=== PATIENT | male | born 1935 | race Caucasian/White ===

== ENCOUNTER 2017-04-03 02:32 | Observation (INO) | payer MEDICARE, OTHER ==
[~2017-04-03] VITALS: Ht 177.8 cm; Wt 84.0 kg
[2017-04-03] VITALS (9 sets, daily range): BP systolic 95–129; BP diastolic 57–71; PULSE 56–91; RESP 16–18; TEMP 97.6–98.4; O2SAT 96–98
[2017-04-03] MEDS ORDERED: SPIR25TA PO (02:57)
[2017-04-03] MEDS ORDERED: ASPI1TAB69 PO (02:57)
[2017-04-03] MEDS ORDERED: WARF-58 PO (02:57)
[2017-04-03] MEDS ORDERED: LIOT25TA3 PO (02:57)
[2017-04-03] MEDS ORDERED: LEVO125T4 PO (02:57)
[2017-04-03] MEDS ORDERED: LISI2.5T3 PO (02:57)
[2017-04-03] MEDS ORDERED: FENO160T PO (02:57)
[2017-04-03] MEDS ORDERED: BUME2TAB PO (02:57)
[2017-04-03] MEDS ORDERED: CARV3.12 PO (02:57)
[2017-04-03] MEDS ORDERED: SODIUM CHLORIDE 0.9% FLUSH 5 ML FLUSH IV FLUSH PRN (03:00)
[2017-04-03 03:18] LABS: AUTOMATED NEUTROPHIL # 9.1 TH/MM3 (1.8-7.7); BASOPHIL % 0.3 % (0.0-2.0); HEMATOCRIT 40.7 % (39.0-51.0); HEMO FLAGS DIFF FINAL; LYMPH % 11.3 % (9.0-44.0); LYMPHOCYTE # 1.2 TH/MM3 (1.0-4.8); MEAN CELL VOLUME 91.7 FL (80.0-100.0); MEAN CORPUSCULAR HEMOGLOBIN 31.3 PG (27.0-34.0); MEAN CORPUSCULAR HGB CONC 34.1 % (32.0-36.0); MONO % 5.2 % (0.0-8.0); NEUT % 83.2 % (16.0-70.0); PLATELET COUNT 177 TH/MM3 (150-450); RED BLOOD COUNT 4.43 MIL/MM3 (4.50-5.90); RED CELL DISTRIBUTION WIDTH 13.7 % (11.6-17.2); WHITE BLOOD COUNT 10.9 TH/MM3 (4.0-11.0)
[2017-04-03 03:28] LABS: APTT (PATIENT) 29.9 SEC (24.3-30.1); INTERNATIONAL NORMALIZED RATIO 2.1 RATIO; PROTHROMBIN TIME - PATIENT 23.9 SEC (9.8-11.6)
--- NOTE | 2017-04-03 03:34 | RADRPT ---
EXAM DATE/TIME: 04/03/2017 03:04 [facility] COMPARISON: No previous studies available for comparison. INDICATIONS : Altered mental status, short of breath, confusion. MEDICAL HISTORY : None. SURGICAL HISTORY : None. ENCOUNTER: Initial ACUITY: 1 day PAIN SCORE: Non-responsive. LOCATION: Bilateral chest FINDINGS: A single view of the chest demonstrates the lungs to be symmetrically aerated without evidence of mas s, infiltrate or effusion. Minimal basilar atelectasis. The cardiomediastinal contours are prominent. Osseous structures are intact. CONCLUSION: 1. Cardiomegaly. Minimal basilar atelectasis. Wilder Burr MD on April 03, 2017 at 3:32 Board Certified Radiologist. This report was verified electronically.
[2017-04-03 03:37] LABS: ALT (GPT) 27 U/L (12-78); ANION GAP 11 MEQ/L (5-15); AST (GOT) 26 U/L (15-37); BICARBONATE 23.9 MEQ/L (21.0-32.0); BLOOD UREA NITROGEN 49 MG/DL (7-18); CHLORIDE 101 MEQ/L (98-107); GLOMERULAR FILTRATION RATE 31 ML/MIN (>89); POTASSIUM 4.5 MEQ/L (3.5-5.1); SODIUM (NA) 136 MEQ/L (136-145)
[2017-04-03 03:41] LABS: ACETAMINOPHEN LESS THAN 2.0 MCG/ML (10.0-30.0); ALKALINE PHOSPHATASE 34 U/L (45-117); CREATINE KINASE 109 U/L (39-308); TOTAL BILIRUBIN ADULT 1.1 MG/DL (0.2-1.0)
--- NOTE | 2017-04-03 03:59 | PD ---
HPI Chief Complaint: Head Injury Time Seen by Provider: 02:52 Travel History International Travel<30 days: No Contact w/Intl Traveler<30days: No Traveled to known affect area: No History of Present Illness HPI Patient's 81 years old. He arrives with jerking movements of various times throughout the course of the day. He's also had various episodes of verbal outbursts. Similar symptoms were observed last week. They have been gradually getting worse. For the last day or so they've become essentially constant. Patient carries no diagnosis of dementia. About 4 hours prior to ER arrival the patient fell from the toilet and hit his head against the wall. At the time of interview the patient cannot answer questions in any detail. PFSH Past Medical History Hypertension: Yes Thyroid Disease: Yes Tetanus Vaccination: < 5 Years Influenza Vaccination: Yes Past Surgical History Cholecystectomy: Yes Social History Alcohol Use: No Tobacco Use: No Substance Use: No Allergies-Medications (Allergen,Severity, Reaction): Coded Allergies: No Known Allergies (Unverified , 04/03/17) Reported Meds & Prescriptions Reported Meds & Active Scripts Active Reported Aspirin 81 Mg Tabdr 81 Mg PO DAILY Fenofibrate 160 Mg Tab 160 Mg PO DAILY Spironolactone 25 Mg Tab 25 Mg PO DAILY Carvedilol 3.125 Mg Tab 3.125 Mg PO BID Liothyronine (Liothyronine Sodium) 25 Mcg Tab 25 Mcg PO DAILY Warfarin 3 Mg Tab 3 Mg PO DAILY Bumetanide 2 Mg Tab 2 Mg PO DAILY Lisinopril 2.5 Mg Tab 2.5 Mg PO DAILY Levothyroxine (Levothyroxine Sodium) 125 Mcg Tab 125 Mcg PO DAILY Review of Systems Except as stated in HPI: all other systems reviewed are Neg Physical Exam Narrative GENERAL: 81 yo M, well-nourished well-developed, he appears agitated SKIN: Warm and dry. HEAD: Atraumatic. Normocephalic. L forehead approx 4cm contusion/erythema. EYES: Pupils equal and round. No scleral icterus. No injection or drainage. ENT: No nasal bleeding or discharge. Mucous membranes pink and moist. NECK: Trachea midline. No JVD. CARDIOVASCULAR: Regular rate and rhythm. RESPIRATORY: No accessory muscle use. Clear to auscultation. Breath sounds equal bilaterally. GASTROINTESTINAL: Abdomen soft, non-tender, nondistended. Hepatic and splenic margins not palpable. MUSCULOSKELETAL: Extremities without clubbing, cyanosis, or edema. No obvious deformities. NEUROLOGICAL: Patient is awake. He shouts at random intervals. At various times he flexes his hips and shoulders. The patient can repeat tiptop, 50-50 however he cannot speak freely. The cranial nerves appear symmetric. Patient moves all extremities normally. He does appear agitated. PSYCHIATRIC: Appropriate mood and affect; insight and judgment normal. Data Data Last Documented VS Vital Signs Date Time Temp Pulse Resp B/P Pulse Ox O2 Delivery O2 Flow Rate FiO2 04/03/17 04:41 68 18 116/58 98 Room Air 04/03/17 02:38 97.6 VS reviewed Orders Electrocardiogram (04/03/17 02:52) Ammonia (04/03/17 02:52) Complete Blood Count With Diff (04/03/17 02:52) Comprehensive Metabolic Panel (04/03/17 02:52) Creatine Kinase (Cpk) (04/03/17 02:52) Prothrombin Time / Inr (Pt) (04/03/17 02:52) Act Partial Throm Time (Ptt) (04/03/17 02:52) Troponin I (04/03/17 02:52) Chest, Single Ap (04/03/17 02:52) Ct Brain W/O Iv Contrast(Rout) (04/03/17 02:52) Blood Glucose (04/03/17 02:52) Ecg Monitoring (04/03/17 02:52) Iv Access Insert/Monitor (04/03/17 02:52) Oximetry (04/03/17 02:52) Sodium Chloride 0.9% Flush (Ns Flush) (04/03/17 03:00) Drug Screen, Random Urine (04/03/17 02:52) Alcohol (Ethanol) (04/03/17 02:52) Salicylates (Aspirin) (04/03/17 02:52) Tylenol (Acetaminophen) (04/03/17 02:52) Admit Order (Ed Use Only) (04/03/17 04:45) Labs Laboratory Tests Test 04/03/17 02:55 White Blood Count 10.9 TH/MM3 Red Blood Count 4.43 MIL/MM3 Hemoglobin 13.9 GM/DL Hematocrit 40.7 % Mean Corpuscular Volume 91.7 FL Mean Corpuscular Hemoglobin 31.3 PG Mean Corpuscular Hemoglobin 34.1 % Concent Red Cell Distribution Width 13.7 % Platelet Count 177 TH/MM3 Mean Platelet Volume 10.2 FL Neutrophils (%) (Auto) 83.2 % Lymphocytes (%) (Auto) 11.3 % Monocytes (%) (Auto) 5.2 % Eosinophils (%) (Auto) 0.0 % Basophils (%) (Auto) 0.3 % Neutrophils # (Auto) 9.1 TH/MM3 Lymphocytes # (Auto) 1.2 TH/MM3 Monocytes # (Auto) 0.6 TH/MM3 Eosinophils # (Auto) 0.0 TH/MM3 Basophils # (Auto) 0.0 TH/MM3 CBC Comment DIFF FINAL Differential Comment Prothrombin Time 23.9 SEC Prothromb Time International 2.1 RATIO Ratio Activated Partial 29.9 SEC Thromboplast Time Sodium Level 136 MEQ/L Potassium Level 4.5 MEQ/L Chloride Level 101 MEQ/L Carbon Dioxide Level 23.9 MEQ/L Anion Gap 11 MEQ/L Blood Urea Nitrogen 49 MG/DL Creatinine 2.04 MG/DL Estimat Glomerular Filtration 31 ML/MIN Rate Random Glucose 144 MG/DL Calcium Level 9.2 MG/DL Total Bilirubin 1.1 MG/DL Aspartate Amino Transf 26 U/L (AST/SGOT) Alanine Aminotransferase 27 U/L (ALT/SGPT) Alkaline Phosphatase 34 U/L Ammonia 20 MCMOL/L Total Creatine Kinase 109 U/L Troponin I LESS THAN 0.02 NG/ML Total Protein 7.2 GM/DL Albumin 4.2 GM/DL Salicylates Level LESS THAN 1.7 MG/DL Acetaminophen Level LESS THAN 2.0 MCG/ML Ethyl Alcohol Level LESS THAN 3 MG/DL MDM Medical Decision Making Medical Screen Exam Complete: Yes Emergency Medical Condition: Yes Differential Diagnosis Altered mental status due to infection, altered mental status due to cognitive decline/dementia, polypharmacy, metabolic abnormality, electrolyte imbalance, intracranial pathology, psychiatric disease Narrative Course CBC & BMP Diagram 04/03/17 02:55 LFTs normal Ammonia 20 Troponin less than 0.02 EKG reveals rate of 70 irregular atrial fibrillation; pt has known hx atrial fibrillation Tylenol salicylates and ethyl alcohol are all at the undetectable level Last [address] 04/03/17 0252 Signed Impressions: Service Date/Time: Monday, April 03, 2017 03:48 - CONCLUSION: 1. No acute intracranial abnormalities. Cavum septum pellucidum. Wilder Burr MD Chest X-Ray 04/03/17 0252 Signed Impressions: Service Date/Time: Monday, April 03, 2017 03:04 - CONCLUSION: 1. Cardiomegaly. Minimal basilar atelectasis. Wilder Burr MD Patient's altered mental status is of unclear etiology at this time. He'll be admitted for further evaluation. d/w Dr Mccrary. Diagnosis Primary Impression: Altered mental status Qualified Code: R41.82 - Altered mental status, unspecified altered mental status type Additional Impression: Agitation Admitting Information Admitting Physician Requests: Observation Narayan Rivas MD April 03, 2017 03:59
--- NOTE | 2017-04-03 04:14 | RADRPT ---
EXAM DATE/TIME: 04/03/2017 03:48 [facility] COMPARISON: No previous studies available for comparison. INDICATIONS : Patient fell and hit head. Altered mental status. RADIATION DOSE: 52.13 CTDIvol (mGy) MEDICAL HISTORY : Hypertension. SURGICAL HISTORY : None. ENCOUNTER: Initial ACUITY: 1 day PAIN SCALE: 0/10 LOCATION: cranial TECHNIQUE: Multiple contiguous axial images were obtained of the head. Using automated exposure control and adj ustment of the mA and/or kV according to patient size, radiation dose was kept as low as reasonably a chievable to obtain optimal diagnostic quality images. FINDINGS: CEREBRUM: The ventricles are normal for age. No evidence of midline shift, mass lesion, hemorrhage or acute in farction. No extra-axial fluid collections are seen. POSTERIOR FOSSA: The cerebellum and brainstem are intact. The 4th ventricle is midline. The cerebellopontine angle i s unremarkable. EXTRACRANIAL: The visualized portion of the orbits is intact. SKULL: The calvaria is intact. No evidence of skull fracture. CONCLUSION: 1. No acute intracranial abnormalities. Cavum septum pellucidum. Wilder Burr MD on April 03, 2017 at 4:11 Board Certified Radiologist. This report was verified electronically.
[2017-04-03] MEDS ORDERED: SODIUM CHLORIDE 0.9% FLUSH 10 ML FLUSH IV FLUSH PRN (04:45)
[2017-04-03] MEDS ORDERED: NALOXONE HCL 0.4 MG/ML AMP IV PRN (04:45)
[2017-04-03 05:45] LABS: AMPHETAMINE, URINE NEG (NEG); BARBITURATES, URINE NEG (NEG); COCAINE, URINE NEG (NEG)
[2017-04-03] MEDS: SODIUM CHLORIDE 0.9% FLUSH 10 ML FLUSH IV FLUSH SCH ×2 (09:27→20:26)
[2017-04-03] MEDS: VALPROATE INJ 500 MG in SODIUM CHLORIDE 0.9% INJ 100 ML IV SCH ×2 (10:30→17:47)
[2017-04-03] MEDS ORDERED: BACL20TA PO (11:03)
[2017-04-03] MEDS ORDERED: LORazepam 2 MG/ML VIAL IV PUSH ONE (11:15)
--- NOTE | 2017-04-03 12:50 | RADRPT ---
EXAM DATE/TIME: 04/03/2017 11:53 [facility] COMPARISON: CT BRAIN W/O CONTRAST, April 03, 2017, 3:48. [facility], CT Brain, April 02, 2017 INDICATIONS : Slurred speech. Uncontrollable body movements. MEDICAL HISTORY : Hypertension. Hypothyroidism. SURGICAL HISTORY : Cholecystectomy. cataract ENCOUNTER: Subsequent ACUITY: 1 day PAIN SCORE: 3/10 LOCATION: cranial TECHNIQUE: Multiplanar, multisequence MRI of the brain was performed without contrast. FINDINGS: CEREBRUM: There is a cavum septa pellucida. Mild cortical atrophy. Ventricular prominence out of proportion to the degree of cortical atrophy. No evidence of midline shift, mass lesion, hemorrhage or acute infar ction. No extraaxial fluid collections are seen. The pituitary gland and suprasellar cistern are no rmal in configuration. WHITE MATTER: No significant signal abnormalities are seen in the white matter. POSTERIOR FOSSA: The cerebellum and brainstem are intact. The 4th ventricle is midline. The cerebellopontine angle is unremarkable. The cerebellar tonsils are normal in position. DIFFUSION IMAGING: No focal areas of restricted diffusion are seen. No evidence of acute infarction. EXTRACRANIAL: The visualized portions of the orbits and paranasal sinuses are unremarkable. CONCLUSION: 1. Cavum septum pellucidum, an anatomic variant. 2. Ventricular prominence out of proportion to degree of cortical atrophy. In the appropriate clinica l setting, findings could be indicative of normal pressure hydrocephalus. Osvaldo Ruby MD on April 03, 2017 at 12:46 Board Certified Radiologist. This report was verified electronically.
--- NOTE | 2017-04-03 13:29 | RADRPT ---
EXAM DATE/TIME: 04/03/2017 12:30 [facility] COMPARISON: No previous studies available for comparison. INDICATIONS : Syncope. MEDICAL HISTORY : Congestive heart failure. Hypertension. A-fib. SURGICAL HISTORY : Cholecystectomy. ENCOUNTER: Initial ACUITY: 1 day PAIN SCORE: Nonresponsive. LOCATION: Bilateral neck PEAK SYSTOLIC VELOCITIES (cm/sec): ICA/CCA RATIO: Right: 1.7 Left: 0.9 ICA: Right: 82.7 Left: 67.7 CCA: Right: 47.9 Left: 72.9 ECA: Right: 68.5 Left: 70.2 VERTEBRAL: Right: 44.4 antegrade Left: 69.3 antegrade Elevated flow velocities and ICA/CCA ratios have been found to correlate with increased degrees of vessel stenosis, calculated as percentage of diameter relative to a normal segment of distal ICA/CCA FINDINGS: RIGHT CAROTID: Moderate plaque is present on the right not felt to be hemodynamically significant. . Minimal intimal hyperplasia is present with scattered calcific plaque. LEFT CAROTID: There is no evidence for a hemodynamically significant carotid stenosis. Minimal inti mal hyperplasia is present with scattered calcific plaque. VERTEBRAL ARTERIES: Flow is antegrade in both vertebral arteries. MISCELLANEOUS: There are no ancillary masses or adenopathy. CONCLUSION: Negative examination for a hemodynamically significant carotid stenosis. Constantino Dial MD FACR Board Certified Radiologist. This report was verified electronically.
--- NOTE | 2017-04-03 14:35 | HHI.HP ---
[facility] [place] [facility] Primary Care Physician No Primary Care Physician Admission Diagnosis AMS, Agitation Diagnoses: Chief Complaint: confusion Travel History International Travel<30 Days: No Contact w/Intl Traveler <30 Da: No Traveled to Known Affected Are: No History of Present Illness Written by CHON Musa acting as scribe for Dr. Brizuela] on 04/03/17 at 15 :17. 81 y/o male with a history of HTN,CHF,afib, brain injury, and Hypothyroid presented to the ED confused, increase jerky movements and verbal outbreaks. Patient was given Ativan prior to assessment. Discussed issues with daughter who is at the bedside. 20 years ago he suffered a brain injury from a fall and over the last year he has worsening jerky movements and verbal outbreaks. For the last month he has has had increase balance problems, and yesterday he was having constant jerky movements, he then took a nap, got up to go to the bathroom, and fell asleep on toilet and fell off the toilet. Recent medication change on Thursday, he was given baclofen by his PCP. Review of Systems ROS Limitations: Altered Mental Status Past Family Social History Past Medical History HTN CHF Hypothyroid AFIB Brain injury 20 years ago Past Surgical History Cholecystomy Appendectomy Reported Medications Reported Meds & Active Scripts Active Reported Baclofen 20 Mg Tab 20 Mg PO TID Aspirin 81 Mg Tabdr 81 Mg PO DAILY Fenofibrate 160 Mg Tab 160 Mg PO DAILY Spironolactone 25 Mg Tab 25 Mg PO DAILY Carvedilol 3.125 Mg Tab 3.125 Mg PO BID Liothyronine (Liothyronine Sodium) 25 Mcg Tab 25 Mcg PO DAILY Warfarin 3 Mg Tab 3 Mg PO DAILY Bumetanide 2 Mg Tab 2 Mg PO DAILY Lisinopril 2.5 Mg Tab 2.5 Mg PO DAILY Levothyroxine (Levothyroxine Sodium) 125 Mcg Tab 125 Mcg PO DAILY Allergies: Coded Allergies: No Known Allergies (Unverified , 04/03/17) Active Ordered Medications Current Medications Medications (Trade) Dose Ordered Sig/Shagufta Route Start Time Stop Time Status Last Admin (NS Flush) 2 ml UNSCH PRN IV FLUSH 04/03/17 04:45 (NS Flush) 2 ml BID IV FLUSH 04/03/17 09:00 04/03/17 09:27 Naloxone HCl 0.4 mg 0.4 mg UNSCH PRN IV 04/03/17 04:45 (Depacon Inj/NS Inj) 105 ml @ 105 mls/hr Q8H IV 04/03/17 10:00 04/03/17 10:30 Family History Family history of Heart disease MOM: CHF, DVTs, HTN Social History Per family, Tobacco use: denies Alcohol use: denies Illicit drug use: denies Physical Exam Vital Signs Vital Signs Date Time Temp Pulse Resp B/P Pulse Ox O2 Delivery O2 Flow Rate FiO2 04/03/17 05:54 70 18 106/57 96 04/03/17 04:41 68 18 116/58 98 Room Air 04/03/17 03:22 66 18 129/65 98 Room Air 04/03/17 02:48 20 98 04/03/17 02:38 97.6 91 16 123/71 98 Room Air Physical Exam GENERAL: This is a well-nourished, well-developed patient, in no apparent distress. SKIN: No rashes, ecchymoses or lesions. Cool and dry. HEAD: Atraumatic. Normocephalic. No temporal or scalp tenderness. EYES: Pupils equal round and reactive. Extraocular motions intact. No scleral icterus. No injection or drainage. ENT: Nose without bleeding, purulent drainage or septal hematoma. Throat without erythema, tonsillar hypertrophy or exudate. Uvula midline. Airway patent. NECK: Trachea midline. No JVD or lymphadenopathy. Supple, nontender, no meningeal signs. CARDIOVASCULAR: Regular rate and rhythm without murmurs, gallops, or rubs. RESPIRATORY: Clear to auscultation. Breath sounds equal bilaterally. No wheezes , rales, or rhonchi. GASTROINTESTINAL: Abdomen soft, non-tender, nondistended. No hepato-splenomegaly , or palpable masses. No guarding. MUSCULOSKELETAL: Extremities without clubbing, cyanosis, or edema. No joint tenderness, effusion, or edema noted. No calf tenderness. Negative Homans sign bilaterally. NEUROLOGICAL: Awake and alert. Cranial nerves II through XII intact. Motor and sensory grossly within normal limits. Five out of 5 muscle strength in all muscle groups. Normal speech. Laboratory Laboratory Tests Test 04/03/17 04/03/17 02:55 05:25 White Blood Count 10.9 Red Blood Count 4.43 Hemoglobin 13.9 Hematocrit 40.7 Mean Corpuscular Volume 91.7 Mean Corpuscular Hemoglobin 31.3 Mean Corpuscular Hemoglobin 34.1 Concent Red Cell Distribution Width 13.7 Platelet Count 177 Mean Platelet Volume 10.2 Neutrophils (%) (Auto) 83.2 Lymphocytes (%) (Auto) 11.3 Monocytes (%) (Auto) 5.2 Eosinophils (%) (Auto) 0.0 Basophils (%) (Auto) 0.3 Neutrophils # (Auto) 9.1 Lymphocytes # (Auto) 1.2 Monocytes # (Auto) 0.6 Eosinophils # (Auto) 0.0 Basophils # (Auto) 0.0 CBC Comment DIFF FINAL Differential Comment Prothrombin Time 23.9 Prothromb Time International 2.1 Ratio Activated Partial 29.9 Thromboplast Time Sodium Level 136 Potassium Level 4.5 Chloride Level 101 Carbon Dioxide Level 23.9 Anion Gap 11 Blood Urea Nitrogen 49 Creatinine 2.04 Estimat Glomerular Filtration 31 Rate Random Glucose 144 Calcium Level 9.2 Total Bilirubin 1.1 Aspartate Amino Transf 26 (AST/SGOT) Alanine Aminotransferase 27 (ALT/SGPT) Alkaline Phosphatase 34 Ammonia 20 Total Creatine Kinase 109 Troponin I LESS THAN 0.02 Total Protein 7.2 Albumin 4.2 Salicylates Level LESS THAN 1.7 Acetaminophen Level LESS THAN 2.0 Ethyl Alcohol Level LESS THAN 3 Urine Opiates Screen NEG Urine Barbiturates Screen NEG Urine Amphetamines Screen NEG Urine Benzodiazepines Screen NEG Urine Cocaine Screen NEG Urine Cannabinoids Screen NEG Result Diagram: 04/03/1725404/03/17254 Imaging Last Impressions Head CT 04/03/17251 Signed Impressions: Service Date/Time: Monday, April 03, 2017 03:48 - CONCLUSION: 1. No acute intracranial abnormalities. Cavum septum pellucidum. Wilder Burr MD Chest X-Ray 04/03/17251 Signed Impressions: Service Date/Time: Monday, April 03, 2017 03:04 - CONCLUSION: 1. Cardiomegaly. Minimal basilar atelectasis. Wilder Burr MD Carotid Artery Ultrasound 5/19/17 0000 Signed Impressions: Service Date/Time: Monday, April 03, 2017 12:30 - CONCLUSION: Negative examination for a hemodynamically significant carotid stenosis. Constantino Dial MD Brain MRI 04/03/17 0000 Signed Impressions: Service Date/Time: Monday, April 03, 2017 11:53 - CONCLUSION: 1. Cavum septum pellucidum, an anatomic variant. 2. Ventricular prominence out of proportion to degree of cortical atrophy. In the appropriate clinical setting, findings could be indicative of normal pressure hydrocephalus. Osvaldo Ruby MD Assessment and Plan Problem List: (1) Encephalopathy acute ICD Code: G93.40 Status: Acute (2) CHF (congestive heart failure) ICD Code: I50.9 Status: Chronic (3) HTN (hypertension) ICD Code: I10 Status: Chronic (4) Hypothyroid ICD Code: E03.9 Status: Chronic Assessment and Plan Encephalopathy, acute, with syncopal episode, possible seizure Head CT: negative. Carotid US: negative. Brain MRI: shows questionable hydrocephalus -Consult neurology -Orthostatic vitals -neuro checks -EEG ordered -Swallow eval by ST CKD, possible GEMINI, creatine 2.0, baseline in 2009 1.5 -Trend BMP -Gental IVF due to CHF HTN, chronic, well controlled -Monitor vitals -hold home meds due to kidney function CHF, chronic -Watch for fluid overload -BNP in AM Hypothyroid, chronic -Cont home medications DVT prophylaxis: Coumadin Code Status DNR Discussed Condition With Patient, and RN This note was transcribed by scribe [Alma Butt]. I, Dr. Jose Quach personally performed the history, physical exam, and medical decision making; and confirmed the accuracy of the information in the transcribed note. Authenticated by Dr. Jose Quach on 04/04/17 at 12:26. Problem Qualifiers (1) CHF (congestive heart failure): Qualified Code: I50.22 - Chronic systolic congestive heart failure Alma Butt April 03, 2017 14:35 Jose Quach MD April 04, 2017 12:27
[2017-04-03] MEDS: SODIUM CHLOR 0.9% 1000 ML INJ 1,000 ML IV SCH (15:49)
[2017-04-03] MEDS: CARVEDILOL 3.125 MG TAB PO SCH (20:26)
--- NOTE | 2017-04-03 21:04 | EKG ---
Date Performed: 04/03/2017 Time Performed: 03:03:50 PTAGE: 81 years EKG: ATRIAL FIBRILLATION WITH ABERRANT CONDUCTION OR VENTRICULAR PREMATURE COMPLEXES NONSPECIFIC ST & T-WAVE ABNORMALITY ABNORMAL RHYTHM ECG NO PREVIOUS TRACING DOCTOR: Harley Pelaez Interpretating Date/Time 04/03/2017 21:04:45
[2017-04-04] VITALS (8 sets, daily range): BP systolic 103–124; BP diastolic 53–74; PULSE 56–78; RESP 18; TEMP 96–98.8; O2SAT 94–97
[2017-04-04] MEDS: VALPROATE INJ 500 MG in SODIUM CHLORIDE 0.9% INJ 100 ML IV SCH ×2 (02:48→11:38)
[2017-04-04 06:04] LABS: AUTOMATED NEUTROPHIL # 7.1 TH/MM3 (1.8-7.7); BASOPHIL % 0.5 % (0.0-2.0); EOSINOPHIL # 0.1 TH/MM3 (0-0.4); EOSINOPHIL % 0.8 % (0.0-4.0); HEMATOCRIT 38.4 % (39.0-51.0); HEMO FLAGS DIFF FINAL; LYMPHOCYTE # 1.7 TH/MM3 (1.0-4.8); MEAN CELL VOLUME 92.7 FL (80.0-100.0); MEAN CORPUSCULAR HEMOGLOBIN 30.9 PG (27.0-34.0); MEAN CORPUSCULAR HGB CONC 33.3 % (32.0-36.0); MONO % 6.3 % (0.0-8.0); NEUT % 74.4 % (16.0-70.0); PLATELET COUNT 168 TH/MM3 (150-450); RED BLOOD COUNT 4.14 MIL/MM3 (4.50-5.90); WHITE BLOOD COUNT 9.6 TH/MM3 (4.0-11.0)
[2017-04-04 06:34] LABS: BICARBONATE 23.4 MEQ/L (21.0-32.0)
[2017-04-04] MEDS: LEVOTHYROXINE SODIUM 125 MCG TAB PO SCH (06:37)
[2017-04-04 06:41] LABS: POTASSIUM 4.2 MEQ/L (3.5-5.1)
[2017-04-04] MEDS: CARVEDILOL 3.125 MG TAB PO SCH ×2 (09:00→21:15)
--- NOTE | 2017-04-04 09:29 | HHI.PR ---
Subjective Remarks Follow up for jerking movements, vomiting, syncope. The patient is awake, alert , oriented to person, birthdate, place, March, but says the year is 191. He states just over the past few days he has been having uncontrollable jerking movements, however per previous note, family reported the patient having these jerking movements worsening over the past year. The patient states 2 days ago he was sitting outside on the [place] when he vomited all of a sudden. Denies eating anything out of the ordinary, states he had a stew the night before. Then he went to the bathroom, believes he was having a bowel movement, when he all of a sudden passed out while sitting on the toilet. He states he hit the top of his head on the floor. His heard him fall, and she was able to get him up and into the bedroom where he had another episode of vomiting. The patient states his called his son who then brought him to the hospital. Today the patient reports continued jerking movements of the head, hands, and legs. He complains of some acute on chronic back pain which he believes is related to the hospital bed. He has no other medical complaints at this time. Objective Vitals Vital Signs Date Time Temp Pulse Resp B/P Pulse Ox O2 Delivery O2 Flow Rate FiO2 04/04/17 07:55 97.6 56 18 103/53 96 04/04/17 04:18 97.8 78 18 110/67 97 04/04/17 00:17 97.8 77 18 111/74 97 04/04/17 00:05 2.00 04/03/17 20:12 98.4 77 18 95/60 97 04/03/17 20:00 56 04/03/17 17:47 Nasal Cannula 2.50 04/03/17 17:26 70 114/63 117/64 126/70 04/03/17 15:15 98.2 60 18 103/57 96 04/03/17 14:51 64 Result Diagram: 04/04/1750904/04/17509 Imaging Last Impressions Head CT 04/03/17251 Signed Impressions: Service Date/Time: Monday, April 03, 2017 03:48 - CONCLUSION: 1. No acute intracranial abnormalities. Cavum septum pellucidum. Wilder Burr MD Chest X-Ray 04/03/17251 Signed Impressions: Service Date/Time: Monday, April 03, 2017 03:04 - CONCLUSION: 1. Cardiomegaly. Minimal basilar atelectasis. Wilder Burr MD Carotid Artery Ultrasound 04/03/17 0000 Signed Impressions: Service Date/Time: Monday, April 03, 2017 12:30 - CONCLUSION: Negative examination for a hemodynamically significant carotid stenosis. Constantino Dial MD Brain MRI 04/03/17 0000 Signed Impressions: Service Date/Time: Monday, April 03, 2017 11:53 - CONCLUSION: 1. Cavum septum pellucidum, an anatomic variant. 2. Ventricular prominence out of proportion to degree of cortical atrophy. In the appropriate clinical setting, findings could be indicative of normal pressure hydrocephalus. Osvaldo Ruby MD Objective Remarks GENERAL: Well-nourished, well-developed pleasant elderly male patient in [facility]. SKIN: Warm and dry. No rash. HEENT: Normocephalic. Atraumatic.Pupils equal and round. Mucous membranes pink and moist. NECK: Supple. Trachea midline. CARDIOVASCULAR: Irregular rate and rhythm. S1, S2 noted. No murmur appreciated. RESPIRATORY: No accessory muscle use. Clear to auscultation. Breath sounds equal bilaterally. GASTROINTESTINAL: Abdomen soft, non-tender, nondistended. Normoactive bowel sounds x4. MUSCULOSKELETAL: No obvious deformities. Extremities without clubbing, cyanosis , or edema. NEUROLOGICAL: Awake and alert, oriented to person, place, and month, but states year is 19-17. 5/5 muscle strength in bilateral upper and lower extremities; however patient slow to follow commands with strength testing, especially with bilateral lower extremities. Normal speech. Intermittent jerking/twitching of the head, arms, and legs. PSYCHIATRIC: Appropriate mood and affect; insight and judgment normal. Medications and IVs Current Medications Medications (Trade) Dose Ordered Sig/Shagufta Route Start Time Stop Time Status Last Admin (NS Flush) 2 ml UNSCH PRN IV FLUSH 04/03/17 04:45 (NS Flush) 2 ml BID IV FLUSH 04/03/17 09:00 04/03/17 09:27 Naloxone HCl 0.4 mg 0.4 mg UNSCH PRN IV 04/03/17 04:45 Valproate Sodium 500 mg/Sodium Chloride 105 ml @ 105 mls/hr Q8H IV 04/03/17 10:00 04/04/17 02:48 (NS 1000 ml Inj) 1,000 ml @ 60 mls/hr [id number] IV 04/03/17 15:45 04/03/17 15:49 (Ecotrin Ec) 81 mg DAILY PO 04/04/17 09:00 (Coreg) 3.125 mg BID PO 04/03/17 21:00 (Synthroid) 125 mcg DAILY@06 PO 04/04/17 06:00 04/04/17 06:37 (Cytomel) 25 mcg DAILY PO 04/04/17 09:00 (Coumadin) 3 mg DAILY@16 PO 04/04/17 16:00 (Tricor) 145 mg DAILY PO 04/04/17 09:00 (Coumadin Booklet) 1 ONCE ONCE .XX 04/04/17 16:00 04/04/17 16:01 A/P Problem List: (1) Encephalopathy acute ICD Code: G93.40 Status: Acute (2) CHF (congestive heart failure) ICD Code: I50.9 Status: Chronic (3) HTN (hypertension) ICD Code: I10 Status: Chronic (4) Hypothyroid ICD Code: E03.9 Status: Chronic Assessment and Plan 81-year-old male with 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 Acute Encephalopathy: Head CT images reviewed, no acute findings. Brain MRI shows cavum septum pellucidum, anatomic variant; ventricular prominence out of proportion to degree of cortical atrophy; findings could be indicative of NPH. Neurology consulted. Continue neuro checks. Orthostatics negative. Fall precautions. Myoclonic Jerking, suspected: with hx of TBI 20years ago. Brain MRI as above. EEG pending. Neurology consulted. PT/OT/ST consult. Started on IV Depakote per neurology. Syncope: patient describes as passing out however patient's family reports he feel asleep on the toilet. Suspect related to medications vs vasovagal with vomiting, patient was placed on Baclofen the day prior by PCP for back pain. Head imaging as above. Monitor on tele. EEG pending. Given IVF. Held patient's Baclofen. Orthostatics negative. No further episodes. Atrial Fibrillation, on Coumadin: With therapeutic INR 2.1. EKG shows atrial fibrillation. Continue patient's Coumadin, monitor INR, with pharmacy consult. Monitor on telemetry. CHF/HTN: chronic, stable, continue patient's lisinopril 2.5mg qd, coreg 3.125mg bid, aspirin. Held patient's bumex and spironolactone with GEMINI. Caution with IVF , will d/c fluids when tolerating po intake. GEMINI on CKD stage III: Cr 2.04, with baseline 1.5 per EMR. Given IVF. Renal function improving, Cr 1.4 today. Avoid nephrotoxins. Hypothyroidism: chronic, continue patient's levothyroxine. Check TSH. DVT Prophylaxis: on coumadin with therapeutic INR Problem Qualifiers (1) CHF (congestive heart failure): Qualified Code: I50.22 - Chronic systolic congestive heart failure Citlali Jamies PA-C April 04, 2017 9:29 am
[2017-04-04 10:55] LABS: INTERNATIONAL NORMALIZED RATIO 2.7 RATIO; PROTHROMBIN TIME - PATIENT 30.8 SEC (9.8-11.6)
[2017-04-04] MEDS: SODIUM CHLORIDE 0.9% FLUSH 10 ML FLUSH IV FLUSH SCH ×2 (11:37→21:00)
[2017-04-04] MEDS: FENOFIBRATE 145 MG TAB PO SCH (11:38)
[2017-04-04] MEDS: LIOTHYRONINE SODIUM 25 MCG TAB PO SCH (11:38)
[2017-04-04] MEDS: SODIUM CHLOR 0.9% 1000 ML INJ 1,000 ML IV SCH (11:39)
[2017-04-04] MEDS: ASPIRIN EC 81 MG TABEC PO SCH (11:39)
--- NOTE | 2017-04-04 15:28 | MG ---
cc: PAM MCDONALD M.D. Lab No: [id number] Date: 04/04/17 Age: 81 Sex: M Race: Hyperventilation not performed. Jerking, verbal outbursts, 81-year-old man. MEDICATIONS Narcan. Some diffuse 5 to 7 Hz rhythms are noted. The recording overall is synchronous and symmetric. A lot of bifrontal muscle artifact is seen. I do not see any hemisphere asymmetry. Photic stimulation was performed without significant posterior driving. IMPRESSION Some diffuse theta slowing consistent with a mild diffuse encephalopathy but no focal abnormality was noted. No seizure activity was seen. MD JAYCEE Lazcano/RODERICK /2:20 PM /3:20 PM
[2017-04-04] MEDS ORDERED: WARFARIN SOD 3 MG TAB PO SCH (16:00)
--- NOTE | 2017-04-04 17:51 | HHI.PR ---
Review/Management Diagnosis Dementia H/o remote SDH s/p fall A fibrillation/on Coumadin Gait difficulty Myoclonus Plan Neuro checks Q 4h Increase Depakote to 750mg Q8h Depakote level next am Fall precautions Consult neurosurgery for possible NPH, recommendations are appreciated DVT prophylaxis, SCDs' Diagnosis/Plan: Subjective Subjective Comments Mild improvement of symptoms with less myoclonic movements Less frequent verbal outbursts EE with no evidence of ictal activity, but evidence of slowing and encephalopathic pattern MRI brain revealed dilated ventricles out of the proportion of cerebral atrophy Active Medications Current Medications Medications (Trade) Dose Ordered Sig/Shagufta Route Start Time Stop Time Status Last Admin (NS Flush) 2 ml UNSCH PRN IV FLUSH 04/03/17 04:45 (NS Flush) 2 ml BID IV FLUSH 04/03/17 09:00 04/04/17 11:37 Naloxone HCl 0.4 mg 0.4 mg UNSCH PRN IV 04/03/17 04:45 Valproate Sodium 500 mg/Sodium Chloride 105 ml @ 105 mls/hr Q8H IV 04/03/17 10:00 04/04/17 11:38 (NS 1000 ml Inj) 1,000 ml @ 60 mls/hr [id number] IV 04/03/17 15:45 04/04/17 11:39 (Ecotrin Ec) 81 mg DAILY PO 04/04/17 09:00 04/04/17 11:39 (Coreg) 3.125 mg BID PO 04/03/17 21:00 (Synthroid) 125 mcg DAILY@06 PO 04/04/17 06:00 04/04/17 06:37 (Cytomel) 25 mcg DAILY PO 04/04/17 09:00 04/04/17 11:38 (Coumadin) 3 mg DAILY@16 PO 04/04/17 16:00 Hold Fenofibrate 145 mg 145 mg DAILY PO 04/04/17 09:00 04/04/17 11:38 (Coumadin Consult Pharmacy) 0 ml @ 0 mls/hr UNSCH OTHER 04/04/17 09:00 Allergies Allergies Coded Allergies No Known Allergies (Unverified04/03/17) Exam I&O / VS Vital Signs Date Time Temp Pulse Resp B/P Pulse Ox O2 Delivery O2 Flow Rate FiO2 04/04/17 15:40 96.0 75 18 124/56 95 04/04/17 11:42 97.2 62 18 124/61 94 04/04/17 10:41 71 04/04/17 09:55 97 04/04/17 08:00 Room Air 04/04/17 07:55 97.6 56 18 103/53 96 04/04/17 04:18 97.8 78 18 110/67 97 04/04/17 00:17 97.8 77 18 111/74 97 04/04/17 00:05 2.00 04/03/17 20:12 98.4 77 18 95/60 97 04/03/17 20:00 56 04/03/17 17:47 Nasal Cannula 2.50 General: Alert and Oriented, No acute distress Eye: PERRL, Normal conjuctiva, Vision unchanged Respiratory: Lungs CTA, Non-labored respirations Cardiology: Normal rate, No murmur Musculoskeletal: ROM, Tenderness Neurologic: Alert, Oriented, Normal sensory, No focal defects, CN II-XII intact , Other (intermittent myoclonic activity of the extremities l>r with vocal oubursts of myoclonus) Psychiatric: Cooperative, Appropriate mood & affect Objective Radiology Results Last [address] 04/03/17251 Signed Impressions: Service Date/Time: Monday, April 03, 2017 03:48 - CONCLUSION: 1. No acute intracranial abnormalities. Cavum septum pellucidum. Wilder Burr MD Chest X-Ray 04/03/17251 Signed Impressions: Service Date/Time: Monday, April 03, 2017 03:04 - CONCLUSION: 1. Cardiomegaly. Minimal basilar atelectasis. Wilder Burr MD Carotid Artery Ultrasound 04/03/17 0000 Signed Impressions: Service Date/Time: Monday, April 03, 2017 12:30 - CONCLUSION: Negative examination for a hemodynamically significant carotid stenosis. Constantino Dial MD Brain MRI 04/03/17 0000 Signed Impressions: Service Date/Time: Monday, April 03, 2017 11:53 - CONCLUSION: 1. Cavum septum pellucidum, an anatomic variant. 2. Ventricular prominence out of proportion to degree of cortical atrophy. In the appropriate clinical setting, findings could be indicative of normal pressure hydrocephalus. Osvaldo Ruby MD Micro and Labs Laboratory Tests Test 04/04/17 04/04/17 05:10 10:14 White Blood Count 9.6 Red Blood Count 4.14 Hemoglobin 12.8 Hematocrit 38.4 Mean Corpuscular Volume 92.7 Mean Corpuscular Hemoglobin 30.9 Mean Corpuscular Hemoglobin 33.3 Concent Red Cell Distribution Width 14.0 Platelet Count 168 Mean Platelet Volume 10.7 Neutrophils (%) (Auto) 74.4 Lymphocytes (%) (Auto) 18.0 Monocytes (%) (Auto) 6.3 Eosinophils (%) (Auto) 0.8 Basophils (%) (Auto) 0.5 Neutrophils # (Auto) 7.1 Lymphocytes # (Auto) 1.7 Monocytes # (Auto) 0.6 Eosinophils # (Auto) 0.1 Basophils # (Auto) 0.0 CBC Comment DIFF FINAL Differential Comment Sodium Level 140 Potassium Level 4.2 Chloride Level 107 Carbon Dioxide Level 23.4 Anion Gap 10 Blood Urea Nitrogen 41 Creatinine 1.41 Estimat Glomerular Filtration 48 Rate Random Glucose 85 Calcium Level 8.7 Thyroid Stimulating Hormone 0.707 3rd Gen Prothrombin Time 30.8 Prothromb Time International 2.7 Ratio Date/Time Procedure Status Source Growth 04/04/17 14:30 Received Stool Stool Pending Nando Lara MD April 04, 2017 17:51
[2017-04-04] MEDS: VALPROATE INJ 750 MG in SODIUM CHLORIDE 0.9% INJ 100 ML IV SCH (18:12)
[2017-04-04 18:52] LABS: C. DIFF EPI 027 PRESUMPTIVE NEGATIVE (NEGATIVE); C. DIFF TOXIN PCR NEGATIVE (NEGATIVE)
--- NOTE | 2017-04-04 19:56 | PD.CONS ---
History of Present Illness Service Neurosurgery Consult Requested By Medicine service, neurology Reason for Consult Possible NPH Primary Care Physician No Primary Care Physician Diagnoses: History of Present Illness 81-year-old male brought to the emergency room due to recent progressive episodes of shaking and spasm in the left lower extremity accompanied by intermittent abnormal vocalizations. The patient himself states that he has had some progressive gait difficulty for at least a few months. He states that approximately 20 years ago he fell and hit his head and believes that he may have had some chronic gait impairment since then. However in the past few months, his gait has become progressively worse. He has no significant pain with ambulation. He states that it feels as if his right upper extremity coordination is impaired. In the past 4 days he has noted that his left upper extremity is weak, and he cannot lift it above his shoulder level. He has some numbness in the left hand. He has a history of chronic problems with bladder dysfunction. Review of Systems Constitutional: COMPLAINS OF: Fatigue, DENIES: Fever, Weight loss, Dizziness Eyes: DENIES: Blurred vision, Diplopia, Vision loss Ears, nose, mouth, throat: DENIES: Hearing loss, Vertigo Respiratory: DENIES: Cough, Sputum production, Shortness of breath Cardiovascular: DENIES: Chest pain, Palpitations Gastrointestinal: COMPLAINS OF: Diarrhea, DENIES: Abdominal pain Genitourinary: COMPLAINS OF: Urinary incontinence, Urgency Musculoskeletal: COMPLAINS OF: Back pain, Neck pain, DENIES: Joint pain Hematologic/lymphatic: COMPLAINS OF: Bruising Immunologic/allergic: DENIES: Urticaria Neurologic: COMPLAINS OF: Abnormal gait, Localized weakness, Speech Problems, Tremor, DENIES: Headache Past Family Social History Allergies: Coded Allergies: No Known Allergies (Unverified , 04/03/17) Past Medical History Hypertension Chronic atrial fibrillation on Coumadin CHF Past Surgical History Appendectomy Cholecystectomy Reported Medications Reported Meds & Active Scripts Active Reported Baclofen 20 Mg Tab 20 Mg PO TID Aspirin 81 Mg Tabdr 81 Mg PO DAILY Fenofibrate 160 Mg Tab 160 Mg PO DAILY Spironolactone 25 Mg Tab 25 Mg PO DAILY Carvedilol 3.125 Mg Tab 3.125 Mg PO BID Liothyronine (Liothyronine Sodium) 25 Mcg Tab 25 Mcg PO DAILY Warfarin 3 Mg Tab 3 Mg PO DAILY Bumetanide 2 Mg Tab 2 Mg PO DAILY Lisinopril 2.5 Mg Tab 2.5 Mg PO DAILY Levothyroxine (Levothyroxine Sodium) 125 Mcg Tab 125 Mcg PO DAILY Family History Negative for neurologic disorders, seizure, cancer Social History Does not smoke cigarettes No history of significant alcohol use Physical Exam Vital Signs Vital Signs Date Time Temp Pulse Resp B/P Pulse Ox O2 Delivery O2 Flow Rate FiO2 04/04/17 15:40 96.0 75 18 124/56 95 04/04/17 11:42 97.2 62 18 124/61 94 04/04/17 10:41 71 04/04/17 09:55 97 04/04/17 08:00 Room Air 04/04/17 07:55 97.6 56 18 103/53 96 04/04/17 04:18 97.8 78 18 110/67 97 04/04/17 00:17 97.8 77 18 111/74 97 04/04/17 00:05 2.00 04/03/17 20:12 98.4 77 18 95/60 97 04/03/17 20:00 56 Physical Exam GENERAL: This is a well-nourished, well-developed patient, in no apparent distress. SKIN: Scattered areas of ecchymosis and mild edema throughout the distal greater than proximal upper and lower extremities HEAD: Atraumatic. Normocephalic. No temporal or scalp tenderness. EYES: Sclerae are clear and nonicteric ENT: Oropharynx clear. NECK: Trachea midline. No JVD or lymphadenopathy. Supple, nontender, no meningeal signs. CARDIOVASCULAR: Regular rate and rhythm without murmurs, gallops, or rubs. RESPIRATORY: Clear to auscultation. Breath sounds equal bilaterally. No wheezes , rales, or rhonchi. GASTROINTESTINAL: Abdomen soft, non-tender, nondistended. No hepato-splenomegaly , or palpable masses. No guarding. MUSCULOSKELETAL: Mild distal lower extremity edema. Significant areas of bruising and ecchymosis. Posterior tibial pulse 2+ bilateral NEUROLOGICAL: Awake and alert Oriented X month, hospital, name. Has difficulty imparting more detailed information Speech is mildly slow. Noted significant dysarthria Conversant and appropriate Follow simple commands well Answers questions appropriately Reasonable judgment and insight Recalls 2 of 3 objects at 5 minutes. Good remote memory. Moderately impaired short-term recall. States that he does not recall his family being with him earlier in the week. No evidence of anxiety or depression Pupils are equal and reactive to accommodation. Extra-ocular movements, visual diez to confrontation, facial sensorimotor, tongue, palate, sternocleidomastoid testing, hearing to finger rub testing, and bilateral shoulder shrug are all intact. Sensation is intact to light touch in all extremities Strength is normal major flexion and extension groups in the right and left upper and lower extremity. He has mostly 4-5/5 proximal and 3/5 distal left upper and lower extremity motor strength Laxmi's absent bilaterally No ankle clonus He has occasional brief jerking movements and the left lower extremity, occasionally accompanied by involuntary vocalizations. Plantar response is mildly flexor on the right, mildly extensor on the left. Fine motor movements intact right upper extremity. Positive left pronator drift He has at least moderate difficulty with fine motor movements and cerebellar testing in the left upper extremity. He is unable to lift his left arm above the shoulder apparently due to some weakness and loss of motor control. He can tap his left fingers together only with significant difficulty, with no problems with fine motor control in the right hand. Laboratory Laboratory Tests Test 04/04/17 04/04/17 04/04/17 05:10 10:14 14:30 White Blood Count 9.6 Red Blood Count 4.14 Hemoglobin 12.8 Hematocrit 38.4 Mean Corpuscular Volume 92.7 Mean Corpuscular Hemoglobin 30.9 Mean Corpuscular Hemoglobin 33.3 Concent Red Cell Distribution Width 14.0 Platelet Count 168 Mean Platelet Volume 10.7 Neutrophils (%) (Auto) 74.4 Lymphocytes (%) (Auto) 18.0 Monocytes (%) (Auto) 6.3 Eosinophils (%) (Auto) 0.8 Basophils (%) (Auto) 0.5 Neutrophils # (Auto) 7.1 Lymphocytes # (Auto) 1.7 Monocytes # (Auto) 0.6 Eosinophils # (Auto) 0.1 Basophils # (Auto) 0.0 CBC Comment DIFF FINAL Differential Comment Sodium Level 140 Potassium Level 4.2 Chloride Level 107 Carbon Dioxide Level 23.4 Anion Gap 10 Blood Urea Nitrogen 41 Creatinine 1.41 Estimat Glomerular Filtration 48 Rate Random Glucose 85 Calcium Level 8.7 Thyroid Stimulating Hormone 0.707 3rd Gen Prothrombin Time 30.8 Prothromb Time International 2.7 Ratio Stool C. difficile Toxin (PCR) NEGATIVE Stl C. difficile Toxin PRESUMPTIVE Epiderm 027 NEGATIVE Date/Time Procedure Status Source Growth 04/04/17 14:30 Received Stool Stool Pending Result Diagram: 04/04/17 0510 04/04/17 0510 Imaging 04/03/17 CT scan head and MRI brain images of been reviewed by the undersigned. Agree with findings as noted below. He does have at least moderate diffuse ventriculomegaly, but also has quite significant cortical and deep white matter atrophy. Head CT 04/03/17 0252 Signed Impressions: Service Date/Time: Monday, April 03, 2017 03:48 - CONCLUSION: 1. No acute intracranial abnormalities. Cavum septum pellucidum. Wilder Burr MD Chest X-Ray 04/03/17251 Signed Impressions: Service Date/Time: Monday, April 03, 2017 03:04 - CONCLUSION: 1. Cardiomegaly. Minimal basilar atelectasis. Wilder Burr MD Carotid Artery Ultrasound 04/03/17 0000 Signed Impressions: Service Date/Time: Monday, April 03, 2017 12:30 - CONCLUSION: Negative examination for a hemodynamically significant carotid stenosis. Constantino Dial MD Brain MRI 04/03/17 0000 Signed Impressions: Service Date/Time: Monday, April 03, 2017 11:53 - CONCLUSION: 1. Cavum septum pellucidum, an anatomic variant. 2. Ventricular prominence out of proportion to degree of cortical atrophy. In the appropriate clinical setting, findings could be indicative of normal pressure hydrocephalus. Osvaldo Ruby MD Assessment and Plan Assessment and Plan Impression: 1. My clonus 2. 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 History of atrial fibrillation. On Coumadin Recommendations: Findings were discussed at length with the patient. He states that the jerking movements in the left leg are significantly improved with his recent medication changes per neurology. It is difficult to accurately assess his gait at the present time given the my clonus. I advised him it would be best to reevaluate him once the my clonus is better controlled. He does seem to have findings suggestive of NPH. However he does have quite a bit of diffuse atrophy noted on MRI, and it is doubtful that NPH as he only problem affecting his gait and mental functions. We will follow him in the hospital and see how he does with initial physical therapy. He is otherwise stable for discharge from a neurosurgical standpoint and will be seen as an outpatient in 3-4 weeks. Earle Harvey MD April 04, 2017 19:55
[2017-04-05] VITALS (10 sets, daily range): BP systolic 108–131; BP diastolic 55–74; PULSE 59–84; RESP 18; TEMP 96.8–98.7; O2SAT 95–98
[2017-04-05] MEDS: VALPROATE INJ 750 MG in SODIUM CHLORIDE 0.9% INJ 100 ML IV SCH ×2 (02:17→09:26)
[2017-04-05] MEDS: SODIUM CHLOR 0.9% 1000 ML INJ 1,000 ML IV SCH (02:17)
[2017-04-05 05:57] LABS: INTERNATIONAL NORMALIZED RATIO 3.1 RATIO; PROTHROMBIN TIME - PATIENT 35.8 SEC (9.8-11.6)
[2017-04-05] MEDS: LEVOTHYROXINE SODIUM 125 MCG TAB PO SCH (06:06)
--- NOTE | 2017-04-05 08:20 | HHI.PR ---
Subjective Remarks Follow up for myoclonic jerking with verbal outbursts. The patient reports much improvement of the jerking after initiation of Depakote. He reports a mild frontal headache where he states he hit his head. He denies any visual changes, lightheadedness, or dizziness. He does admit to difficulty with ambulation. Agrees to rehab placement and would like correctional casework specialist to speak with him and his . He has no other medical complaints at this time. Objective Vitals Vital Signs Date Time Temp Pulse Resp B/P Pulse Ox O2 Delivery O2 Flow Rate FiO2 04/05/17 05:36 98.0 69 18 114/55 98 04/05/17 01:45 59 04/05/17 00:39 98.7 68 18 131/74 97 04/04/17 20:30 Room Air 04/04/17 19:53 98.8 76 18 120/57 95 04/04/17 15:40 96.0 75 18 124/56 95 04/04/17 11:42 97.2 62 18 124/61 94 04/04/17 10:41 71 04/04/17 09:55 97 I/O 04/04/17 04/04/17 04/04/17 04/05/17 04/05/17 04/05/17 07:00 15:00 23:00 07:00 15:00 23:00 # Voids 3 # Bowel Movements 3 Result Diagram: 04/04/17 0510 04/04/17 0510 Imaging Last Impressions Head CT 04/03/17251 Signed Impressions: Service Date/Time: Monday, April 03, 2017 03:48 - CONCLUSION: 1. No acute intracranial abnormalities. Cavum septum pellucidum. Wilder Burr MD Chest X-Ray 04/03/17251 Signed Impressions: Service Date/Time: Monday, April 03, 2017 03:04 - CONCLUSION: 1. Cardiomegaly. Minimal basilar atelectasis. Wilder Burr MD Carotid Artery Ultrasound 04/03/17 0000 Signed Impressions: Service Date/Time: Monday, April 03, 2017 12:30 - CONCLUSION: Negative examination for a hemodynamically significant carotid stenosis. Constantino Dial MD Brain MRI 04/03/17 0000 Signed Impressions: Service Date/Time: Monday, April 03, 2017 11:53 - CONCLUSION: 1. Cavum septum pellucidum, an anatomic variant. 2. Ventricular prominence out of proportion to degree of cortical atrophy. In the appropriate clinical setting, findings could be indicative of normal pressure hydrocephalus. Osvaldo Ruby MD Objective Remarks GENERAL: Well-nourished, well-developed very pleasant elderly male patient in [facility]. SKIN: Warm and dry. No rash. HEENT: Normocephalic. Atraumatic.Pupils equal and round. Mucous membranes pink and moist. NECK: Supple. Trachea midline. CARDIOVASCULAR: Irregular rate and rhythm. S1, S2 noted. No murmur appreciated. RESPIRATORY: No accessory muscle use. Clear to auscultation. Breath sounds equal bilaterally. GASTROINTESTINAL: Abdomen soft, non-tender, nondistended. Normoactive bowel sounds x4. MUSCULOSKELETAL: No obvious deformities. Extremities without clubbing, cyanosis , or edema. NEUROLOGICAL: Awake and alert, oriented to person, place, and month, but states year is 19-17. 5/5 muscle strength in bilateral upper and lower extremities; however patient slow to follow commands with strength testing, especially with bilateral lower extremities. Normal speech. Intermittent jerking/twitching of the head, arms, and legs. Intermittent 1-word verbal outbursts throughout conversation. PSYCHIATRIC: Appropriate mood and affect; insight and judgment fair. Medications and IVs Current Medications Medications (Trade) Dose Ordered Sig/Shagufta Route Start Time Stop Time Status Last Admin (NS Flush) 2 ml UNSCH PRN IV FLUSH 04/03/17 04:45 (NS Flush) 2 ml BID IV FLUSH 04/03/17 09:00 04/04/17 11:37 Naloxone HCl 0.4 mg 0.4 mg UNSCH PRN IV 04/03/17 04:45 (NS 1000 ml Inj) 1,000 ml @ 60 mls/hr [id number] IV 04/03/17 15:45 04/05/17 02:17 (Ecotrin Ec) 81 mg DAILY PO 04/04/17 09:00 04/04/17 11:39 (Coreg) 3.125 mg BID PO 04/03/17 21:00 04/04/17 21:15 (Synthroid) 125 mcg DAILY@06 PO 04/04/17 06:00 04/05/17 06:06 (Cytomel) 25 mcg DAILY PO 04/04/17 09:00 04/04/17 11:38 (Coumadin) 3 mg DAILY@16 PO 04/04/17 16:00 Hold Fenofibrate 145 mg 145 mg DAILY PO 04/04/17 09:00 04/04/17 11:38 Pharmacy Profile Note 0 ml @ 0 mls/hr UNSCH OTHER 04/04/17 09:00 (Depacon Inj/NS Inj) 107.5 ml @ 105 mls/hr Q8H IV 04/04/17 18:00 04/05/17 02:17 A/P Problem List: (1) Encephalopathy acute ICD Code: G93.40 Status: Acute (2) CHF (congestive heart failure) ICD Code: I50.9 Status: Chronic (3) HTN (hypertension) ICD Code: I10 Status: Chronic (4) Hypothyroid ICD Code: E03.9 Status: Chronic Assessment and Plan 81-year-old male with 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 Acute Encephalopathy: Head CT images reviewed, no acute findings. Brain MRI shows cavum septum pellucidum, anatomic variant; ventricular prominence out of proportion to degree of cortical atrophy; findings could be indicative of NPH. Neurology consulted. Continue neuro checks. Orthostatics negative. Fall precautions. Myoclonic Jerking, suspected: with hx of TBI 20years ago. Brain MRI as above. EEG unremarkable. Neurology consulted. PT/OT/ST consult. Started on IV Depakote per neurology, patient much improved. Depakote level 80. Discussed with Dr. Lara , changes to po Depakote 750mg q8h. Stable for discharge per neurology. Syncope: patient describes as passing out however patient's family reports he feel asleep on the toilet. Suspect related to medications vs vasovagal with vomiting, patient was placed on Baclofen the day prior by PCP for back pain. Head imaging as above. Monitor on tele. EEG negative. Given IVF, now discontinued. Held patient's Baclofen. Orthostatics negative. No further episodes. Atrial Fibrillation, on Coumadin: With therapeutic INR 2.1. EKG shows atrial fibrillation. Continue patient's Coumadin, monitor INR, with pharmacy consult. Monitor on telemetry. CHF/HTN: chronic, stable, continue patient's lisinopril 2.5mg qd, coreg 3.125mg bid, aspirin. Initially held patient's bumex and spironolactone with GEMINI, however now renal function back to baseline, discontinued fluids as patient is tolerating po intake, and restart patient's bumex/spironolactone. GEMINI on CKD stage III: Cr 2.04, with baseline 1.5 per EMR. Given IVF. Renal function improving, Cr 1.4. Avoid nephrotoxins. D/c IVF, patient tolerating po intake. Hypothyroidism: chronic, continue patient's levothyroxine. TSH wnl. DVT Prophylaxis: on coumadin with therapeutic INR Discharge Planning Case management consulted for SNF arrangements. 1500hrs: Patient accepted to SNF, will discharge. Will change IV depakote to po. 1700hrs: Patient's family decided to go to inpatient rehab instead of SNF. This will not be approved until tomorrow. Will hold discharge overnight. Ok to discharge to inpatient rehab when arranged. Discharge patient to inpatient rehab Condition on discharge: Improved Heart Healthy Diet as tolerated Ad Claribel activity Rx written: valproic acid 750mg po q8h Follow-up with primary care physician and neurology Dr. Lara Problem Qualifiers (1) CHF (congestive heart failure): Qualified Code: I50.22 - Chronic systolic congestive heart failure Citlali Jaimes PA-C April 05, 2017 8:19 am
[2017-04-05] MEDS: CARVEDILOL 3.125 MG TAB PO SCH ×2 (09:00→20:36)
[2017-04-05] MEDS: ASPIRIN EC 81 MG TABEC PO SCH (09:03)
[2017-04-05] MEDS: FENOFIBRATE 145 MG TAB PO SCH (09:03)
[2017-04-05] MEDS: LIOTHYRONINE SODIUM 25 MCG TAB PO SCH (09:03)
[2017-04-05] MEDS: SODIUM CHLORIDE 0.9% FLUSH 10 ML FLUSH IV FLUSH SCH ×2 (09:03→20:36)
[2017-04-05] MEDS ORDERED: VALP250C PO (15:41)
--- NOTE | 2017-04-05 15:42 | HHI.DCPOC ---
Discharge Care Plan Diagnosis: (1) Myoclonic jerking (2) HTN (hypertension) (3) CHF (congestive heart failure) (4) Hypothyroid Goals to Promote Your Health * To prevent worsening of your condition and complications * To maintain your health at the optimal level Directions to Meet Your Goals Take your medications as prescribed Follow your dietary instruction Follow activity as directed Keep your appointments as scheduled Take your immunizations and boosters as scheduled If your symptoms worsen call your PCP, if no PCP go to Urgent Care Center or Emergency Room Smoking is Dangerous to Your Health. Avoid second hand smoke Call the 24-hour hour crisis hotline for domestic abuse at Citlali Jaimes PA-C April 05, 2017 3:42 pm
--- NOTE | 2017-04-05 17:14 | HHI.PR ---
Review/Management Diagnosis Dementia H/o remote SDH s/p fall A fibrillation/on Coumadin Gait difficulty Myoclonus Plan Neuro checks Q 4h Continue Depakote at 750mg Q8h Fall precautions Patient will need PT/rehab DVT prophylaxis, SCDs' Please call for questions Diagnosis/Plan: Subjective Subjective Comments More improvement in the myoclonic movements less verbal outbursts Patient feels better No new complaint NSG saw patient and recommend follow up for a possible diagnosis of NPH Active Medications Current Medications Medications (Trade) Dose Ordered Sig/Shagufta Route Start Time Stop Time Status Last Admin (NS Flush) 2 ml UNSCH PRN IV FLUSH 04/03/17 04:45 (NS Flush) 2 ml BID IV FLUSH 04/03/17 09:00 04/05/17 09:03 (Narcan Inj) 0.4 mg UNSCH PRN IV 04/03/17 04:45 (Ecotrin Ec) 81 mg DAILY PO 04/04/17 09:00 04/05/17 09:03 (Coreg) 3.125 mg BID PO 04/03/17 21:00 04/04/17 21:15 (Synthroid) 125 mcg DAILY@06 PO 04/04/17 06:00 04/05/17 06:06 (Cytomel) 25 mcg DAILY PO 04/04/17 09:00 04/05/17 09:03 (Coumadin) 3 mg DAILY@16 PO 04/04/17 16:00 Hold Fenofibrate 145 mg 145 mg DAILY PO 04/04/17 09:00 04/05/17 09:03 Pharmacy Profile Note 0 ml @ 0 mls/hr UNSCH OTHER 04/04/17 09:00 (Depacon Inj/NS Inj) 107.5 ml @ 105 mls/hr Q8H IV 04/04/17 18:00 04/05/17 09:26 (Bumetanide) 2 mg DAILY PO 04/06/17 09:00 (Aldactone) 25 mg DAILY PO 04/06/17 09:00 Allergies Allergies Coded Allergies No Known Allergies (Unverified04/03/17) Exam I&O / VS 04/04/17 04/04/17 04/05/17 15:00 23:00 07:00 # Voids 3 # Bowel Movements 3 Vital Signs Date Time Temp Pulse Resp B/P Pulse Ox O2 Delivery O2 Flow Rate FiO2 04/05/17 17:09 98.2 68 18 120/62 95 04/05/17 12:20 97.9 68 18 116/62 95 04/05/17 08:21 96.8 84 18 109/67 96 04/05/17 08:00 70 04/05/17 05:36 98.0 69 18 114/55 98 04/05/17 01:45 59 04/05/17 00:39 98.7 68 18 131/74 97 04/04/17 20:30 Room Air 04/04/17 19:53 98.8 76 18 120/57 95 General: Alert and Oriented, No acute distress Eye: Normal conjuctiva, Vision unchanged Respiratory: Lungs CTA, Non-labored respirations Cardiology: Normal rate, No murmur Musculoskeletal: ROM Neurologic: Alert, Oriented, Normal sensory, Normal motor, No focal defects, CN II-XII intact, Other (intermittent myoclonic activity of the extremities l>r with vocal oubursts of myoclonus) Psychiatric: Cooperative, Appropriate mood & affect (intermittent myoclonic activity of the extremities l>r with vocal oubursts of myoclonus) Objective Radiology Results Last [address] 04/03/17251 Signed Impressions: Service Date/Time: Monday, April 03, 2017 03:48 - CONCLUSION: 1. No acute intracranial abnormalities. Cavum septum pellucidum. Wilder Burr MD Chest X-Ray 04/03/17251 Signed Impressions: Service Date/Time: Monday, April 03, 2017 03:04 - CONCLUSION: 1. Cardiomegaly. Minimal basilar atelectasis. Wilder Burr MD Micro and Labs Laboratory Tests Test 04/05/17 05:30 Prothrombin Time 35.8 Prothromb Time International 3.1 Ratio Valproic Acid (Depakene) Level 80 Date/Time Procedure Status Source Growth 04/04/17 14:30 - Final Complete Stool Stool NO ENTERIC PATHOGENS DETECTED BY PCR... Nando Lara MD April 05, 2017 17:14
[2017-04-05] MEDS: VALPROIC ACID 250 MG CAP PO SCH (18:08)
[2017-04-05] MEDS: FLUTICASONE PROPIONATE 50 MCG/ACT 16 GM NASAL SPRAY EACH NARE SCH (21:51)
[2017-04-06] VITALS (7 sets, daily range): BP systolic 107–183; BP diastolic 56–67; PULSE 66–84; RESP 18; TEMP 97.9–98.5; O2SAT 92–98
[2017-04-06] MEDS: VALPROIC ACID 250 MG CAP PO SCH ×3 (02:06→16:48)
[2017-04-06] MEDS: LEVOTHYROXINE SODIUM 125 MCG TAB PO SCH (04:50)
[2017-04-06 06:00] LABS: INTERNATIONAL NORMALIZED RATIO 2.2 RATIO; PROTHROMBIN TIME - PATIENT 24.8 SEC (9.8-11.6)
[2017-04-06] MEDS: CARVEDILOL 3.125 MG TAB PO SCH ×2 (09:00→21:00)
[2017-04-06] MEDS: FENOFIBRATE 145 MG TAB PO SCH (09:20)
[2017-04-06] MEDS: FLUTICASONE PROPIONATE 50 MCG/ACT 16 GM NASAL SPRAY EACH NARE SCH (09:21)
[2017-04-06] MEDS: BUMETANIDE 1 MG TAB PO SCH (09:21)
[2017-04-06] MEDS: ASPIRIN EC 81 MG TABEC PO SCH (09:22)
[2017-04-06] MEDS: LIOTHYRONINE SODIUM 25 MCG TAB PO SCH (09:22)
[2017-04-06] MEDS: SODIUM CHLORIDE 0.9% FLUSH 10 ML FLUSH IV FLUSH SCH ×2 (09:22→21:08)
[2017-04-06] MEDS: SPIRONOLACTONE 25 MG TAB PO SCH (09:22)
--- NOTE | 2017-04-06 09:48 | HHI.PR ---
Subjective Remarks Follow up for myoclonic jerking. The patient is awake, alert, doing much better today, did not have any jerking or verbal outbursts throughout conversation. He states he slept very well last night and is hardly having any jerks or outbursts. He is excited to go to rehab. He has no other medical complaints at this time. Diarrhea improved. Objective Vitals Vital Signs Date Time Temp Pulse Resp B/P Pulse Ox O2 Delivery O2 Flow Rate FiO2 04/06/17 04:31 97.9 78 18 109/58 94 04/05/17 23:40 98.0 75 18 108/64 96 04/05/17 22:28 66 04/05/17 19:10 97.9 72 18 122/70 98 04/05/17 17:09 98.2 68 18 120/62 95 04/05/17 12:20 97.9 68 18 116/62 95 I/O 04/05/17 04/05/17 04/05/17 04/06/17 04/06/17 04/06/17 07:00 15:00 23:00 07:00 15:00 23:00 Intake Total 320 ml 480 ml Output Total 200 ml 400 ml Balance 320 ml 280 ml -400 ml Intake Oral 200 ml 480 ml IV Total 120 ml Output Urine Total 200 ml 400 ml # Voids 1 2 # Bowel Movements 1 Result Diagram: 04/04/1750904/04/17509 Imaging Last Impressions Head CT 04/03/17251 Signed Impressions: Service Date/Time: Monday, April 03, 2017 03:48 - CONCLUSION: 1. No acute intracranial abnormalities. Cavum septum pellucidum. Wilder Burr MD Chest X-Ray 04/03/17251 Signed Impressions: Service Date/Time: Monday, April 03, 2017 03:04 - CONCLUSION: 1. Cardiomegaly. Minimal basilar atelectasis. Wildre Burr MD Carotid Artery Ultrasound 04/03/17 0000 Signed Impressions: Service Date/Time: Monday, April 03, 2017 12:30 - CONCLUSION: Negative examination for a hemodynamically significant carotid stenosis. Constantino Dial MD Brain MRI 04/03/17 0000 Signed Impressions: Service Date/Time: Monday, April 03, 2017 11:53 - CONCLUSION: 1. Cavum septum pellucidum, an anatomic variant. 2. Ventricular prominence out of proportion to degree of cortical atrophy. In the appropriate clinical setting, findings could be indicative of normal pressure hydrocephalus. Osvaldo Ruby MD Objective Remarks GENERAL: Well-nourished, well-developed very pleasant elderly male patient in [facility]. SKIN: Warm and dry. No rash. HEENT: Normocephalic. Atraumatic.Pupils equal and round. Mucous membranes pink and moist. CARDIOVASCULAR: Irregular rate and rhythm. S1, S2 noted. No murmur appreciated. RESPIRATORY: No accessory muscle use. Clear to auscultation. Breath sounds equal bilaterally. GASTROINTESTINAL: Abdomen soft, non-tender, nondistended. Normoactive bowel sounds x4. MUSCULOSKELETAL: No obvious deformities. Extremities without clubbing, cyanosis , or edema. NEUROLOGICAL: Awake and alert. 5/5 muscle strength in bilateral upper and lower extremities. Normal speech. Intermittent jerking/twitching of the head, arms, and legs. Intermittent 1-word verbal outbursts throughout conversation. Jerking/ verbal outbursts MUCH improved. PSYCHIATRIC: Appropriate mood and affect; insight and judgment fair. Medications and IVs Current Medications Medications (Trade) Dose Ordered Sig/Shagufta Route Start Time Stop Time Status Last Admin (NS Flush) 2 ml UNSCH PRN IV FLUSH 04/03/17 04:45 (NS Flush) 2 ml BID IV FLUSH 04/03/17 09:00 04/06/17 09:22 (Narcan Inj) 0.4 mg UNSCH PRN IV 04/03/17 04:45 (Ecotrin Ec) 81 mg DAILY PO 04/04/17 09:00 04/06/17 09:22 (Coreg) 3.125 mg BID PO 04/03/17 21:00 04/05/17 20:36 (Synthroid) 125 mcg DAILY@06 PO 04/04/17 06:00 04/06/17 04:50 (Cytomel) 25 mcg DAILY PO 04/04/17 09:00 04/06/17 09:22 (Coumadin) 3 mg DAILY@16 PO 04/04/17 16:00 Hold Fenofibrate 145 mg 145 mg DAILY PO 04/04/17 09:00 04/06/17 09:20 (Coumadin Consult Pharmacy) 0 ml @ 0 mls/hr UNSCH OTHER 04/04/17 09:00 (Bumetanide) 2 mg DAILY PO 04/06/17 09:00 04/06/17 09:21 (Aldactone) 25 mg DAILY PO 04/06/17 09:00 04/06/17 09:22 (Depakene) 750 mg Q8H PO 04/05/17 18:00 04/06/17 09:22 (Flonase Chacho Spr) 2 spray DAILY EACH NARE 04/05/17 20:45 04/06/17 09:21 A/P Problem List: (1) Encephalopathy acute ICD Code: G93.40 Status: Acute (2) CHF (congestive heart failure) ICD Code: I50.9 Status: Chronic (3) HTN (hypertension) ICD Code: I10 Status: Chronic (4) Hypothyroid ICD Code: E03.9 Status: Chronic Assessment and Plan 81-year-old male with 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 Acute Encephalopathy: Head CT images reviewed, no acute findings. Brain MRI shows cavum septum pellucidum, anatomic variant; ventricular prominence out of proportion to degree of cortical atrophy; findings could be indicative of NPH. Neurology consulted. Continue neuro checks. Orthostatics negative. Fall precautions. Resolved, patient back to baseline. Myoclonic Jerking, suspected: with hx of TBI 20years ago. Brain MRI as above. EEG unremarkable. Neurology consulted. PT/OT/ST consult. Started on IV Depakote per neurology, patient much improved. Depakote level 80. Discussed with Dr. Lara , changed to po Depakote 750mg q8h. Stable for discharge per neurology. Jerking/ verbal outbursts MUCH improved. Syncope: patient describes as passing out however patient's family reports he feel asleep on the toilet. Suspect related to medications vs vasovagal with vomiting, patient was placed on Baclofen the day prior by PCP for back pain. Head imaging as above. Monitor on tele. EEG negative. Given IVF, now discontinued. Held patient's Baclofen. Orthostatics negative. No further episodes. Atrial Fibrillation, on Coumadin: With therapeutic INR 2.1. EKG shows atrial fibrillation. Continue patient's Coumadin, monitor INR, with pharmacy consult. Monitor on telemetry. CHF/HTN: chronic, stable, continue patient's lisinopril 2.5mg qd, coreg 3.125mg bid, aspirin. Initially held patient's bumex and spironolactone with GEMINI, however now renal function back to baseline, discontinued fluids as patient is tolerating po intake, and restart patient's bumex/spironolactone. GEMINI on CKD stage III: Cr 2.04, with baseline 1.5 per EMR. Given IVF. Renal function improving, Cr 1.4. Avoid nephrotoxins. D/c IVF, patient tolerating po intake. Hypothyroidism: chronic, continue patient's levothyroxine. TSH wnl. DVT Prophylaxis: on coumadin with therapeutic INR Discharge Planning Case management consulted. Discharge to rehab when arrangements made. Discharge patient to inpatient rehab Condition on discharge: Improved Heart Healthy Diet as tolerated Ad Claribel activity Rx written: depakote 750mg po q8h Follow-up with primary care physician and neurology Dr. Lara Problem Qualifiers (1) CHF (congestive heart failure): Qualified Code: I50.22 - Chronic systolic congestive heart failure Citlali Jaimes PA-C April 06, 2017 9:48 am
--- NOTE | 2017-04-06 10:32 | MB ---
cc: MARKO MEJIA MD DATE OF CONSULTATION: 04/03/2017 REASON FOR CONSULTATION: Possible seizure. HISTORY: Mr. Escamilla is an 81-year-old male with past medical history of hypertension, thyroid disease, and dementia, who presents to the [facility] emergency room accompanied by his son for abnormal movement of the body described as, "jerking movements" with outburst of sounds coinciding with the abnormal jerky movements, that has been ongoing for a month, more frequent and more intense occurrence. The son states that his father has had these abnormal jerky movements for a few years but they are more intense recently. He questions whether these are related to a fall from a ladder 18 years ago with bilateral subdural hematoma. He states that his father is at baseline with mild dementia. The patient's son noticed that the father felt sick yesterday, turned pale, nausea, vomiting and then fell and hit his head on the floor and he was confused with frequent muscle body convulsions but no witnessed seizure activity by the son. During the encounter the patient was awake, aware, answering questions appropriately but with noticeable myoclonic like jerking movements and outbursts of verbal sounds that look like myoclonic in nature. PAST MEDICAL HISTORY 1. Hypertension 2. Thyroid disease. 3. Atrial fibrillation 4. Coronary artery disease. PAST SURGICAL HISTORY Cholecystectomy. SOCIAL HISTORY: Lives with his denies alcohol, tobacco or substance abuse. ALLERGIES No known allergies. MEDICATIONS 1. Aspirin. 2. Fenofibrate. 3. Spironolactone. 4. Carvedilol 5. Levothyroxine 6. Warfarin. 7. Bumetanide. 8. Lisinopril REVIEW OF SYSTEMS A 12-point review of systems is negative except for what is stated in the history of present illness. FAMILY HISTORY Noncontributory PHYSICAL EXAMINATION GENERAL: Awake, alert, oriented with clear myoclonic movements involving the entire body. HEAD, EYES, EARS, NOSE, AND THROAT: Atraumatic, normocephalic. At times there is drooping and facial muscle spasms on the left side. Intact hearing. Intact vision. HEAD/NECK: Clear cut tongue bites bilateral edges of tongue. NECK: No signs of meningeal irritation. CARDIOVASCULAR SYSTEM: Regular rate and rhythm. RESPIRATORY: Clear to auscultation. No wheezes GASTROINTESTINAL: Soft abdomen No tenderness. MUSCULOSKELETAL: No clubbing or cyanosis or edema and no deformities. NEUROLOGIC: Awake, alert, oriented to person, place and time. Intact naming. Intact repetition, questionable slurred speech as per son, no clear dysarthria. No element of dysphagia. Intact ocular motility. Pupils are 2 mm equally reacting to light. No facial asymmetry. Intermittent brief episodes of shunting with chronic like activity involving the whole body, moves all extremities equally. Muscle strength is grossly 5/5 bilateral and symmetrical. Sensory system is intact bilateral and symmetrical. Unable to accurately assess the cerebellar function. Plantar's are bilaterally downgoing. LABORATORY DATA White BC 10.9, hemoglobin 13.9, INR 2.1, sodium 136, potassium 4.5, BUN 49, creatinine 2.04, random glucose 144, alkaline phosphatase 34, total troponin less than 0.02. Toxicology urine detox is negative. DIAGNOSTIC IMAGING: - Head CT scan without contrast with no acute intracranial abnormality. Cavum septum pellucidum. - Brain MRI - Cavum septum pellucidum and atomic variant. Ventricular prominence out of the proportion to degree of cortical atrophy in the appropriate clinical setting finding could be indicative of normal pressure hydrocephalus. - Carotid ultrasound negative for hemodynamically significant carotid stenosis. DIAGNOSTIC IMPRESSION 1. Myoclonus 2. Dementia 3. Hypertension. 4. History of atrial fibrillation on anticoagulation. 5. Weakness. 6. Seizure. PLAN: 1. Neuro checks q. four hourly. 2. Seizure precautions. 3. Valpromide 500 mg IV q. eight hourly. 4. MRI brain. 5. EEG 6. DVT prophylaxis. Thank you for the opportunity to participate in the care of your patient. MD WOLFGANG Saldivar/daniel /3:20 PM /10:30 AM MARIA R
[2017-04-06] MEDS ORDERED: ONDANSETRON HCL 4 MG/2 ML VIAL IV PUSH PRN (12:45)
[2017-04-06] MEDS: WARFARIN SOD 2.5 MG TAB PO SCH (16:48)
[2017-04-07] VITALS (11 sets, daily range): BP systolic 101–124; BP diastolic 59–70; PULSE 73–86; RESP 17–21; TEMP 97.2–98.5; O2SAT 91–98
[2017-04-07] MEDS: VALPROIC ACID 250 MG CAP PO SCH ×3 (02:41→17:08)
[2017-04-07] MEDS: LEVOTHYROXINE SODIUM 125 MCG TAB PO SCH (06:12)
[2017-04-07 07:39] LABS: INTERNATIONAL NORMALIZED RATIO 2.1 RATIO; PROTHROMBIN TIME - PATIENT 24.5 SEC (9.8-11.6)
[2017-04-07] MEDS: LIOTHYRONINE SODIUM 25 MCG TAB PO SCH (09:18)
[2017-04-07] MEDS: BUMETANIDE 1 MG TAB PO SCH (09:18)
[2017-04-07] MEDS: FENOFIBRATE 145 MG TAB PO SCH (09:18)
[2017-04-07] MEDS: SODIUM CHLORIDE 0.9% FLUSH 10 ML FLUSH IV FLUSH SCH ×2 (09:18→20:20)
[2017-04-07] MEDS: ASPIRIN EC 81 MG TABEC PO SCH (09:18)
[2017-04-07] MEDS: CARVEDILOL 3.125 MG TAB PO SCH ×2 (09:19→20:20)
[2017-04-07] MEDS: FLUTICASONE PROPIONATE 50 MCG/ACT 16 GM NASAL SPRAY EACH NARE SCH (09:19)
[2017-04-07] MEDS: SPIRONOLACTONE 25 MG TAB PO SCH (09:19)
[2017-04-07] MEDS ORDERED: COUM2.5T PO (13:44)
[2017-04-07] MEDS ORDERED: ONDA1TAB16 PO (13:44)
[2017-04-07] MEDS ORDERED: LACTCHW3 CHEW (13:44)
--- NOTE | 2017-04-07 13:46 | HHI.PR ---
Subjective Remarks Follow-up for myoclonic jerking and AMS. The patient reports that his myoclonic jerking has significantly improved since he's been here at the hospital. The patient states that he is going to rehabilitation. He does complain of not having much of an appetite due to nausea. He's been eating about half of his foot. He denies any vomiting or abdominal pain. He states that his stool this morning was "a little runny". He states that he did have some loose stools when he was first admitted, but his stools have improved. He denies having more than one bowel movement daily. He denies any fevers or chills. Objective Vitals Vital Signs Date Time Temp Pulse Resp B/P Pulse Ox O2 Delivery O2 Flow Rate FiO2 04/07/17 11:01 97.8 82 18 107/70 96 04/07/17 08:47 98.5 86 21 124/61 98 04/07/17 08:45 98.4 77 18 117/67 97 04/07/17 08:00 76 04/07/17 06:17 95 04/07/17 04:16 97.8 74 18 113/60 91 04/07/17 00:42 97.8 81 18 101/61 97 04/06/17 20:37 98.1 84 18 107/59 97 04/06/17 20:15 77 04/06/17 18:29 72 04/06/17 15:19 98.4 74 18 126/64 97 I/O 04/06/17 04/06/17 04/06/17 04/07/17 04/07/17 04/07/17 06:59 14:59 22:59 06:59 14:59 22:59 Output Total 400 ml Balance -400 ml Output Urine Total 400 ml # Voids 1 3 # Bowel Movements 1 Result Diagram: 04/04/17 0510 04/04/17509 Imaging Last Impressions Head CT 04/03/17251 Signed Impressions: Service Date/Time: Monday, April 03, 2017 03:48 - CONCLUSION: 1. No acute intracranial abnormalities. Cavum septum pellucidum. Wilder Burr MD Chest X-Ray 04/03/17251 Signed Impressions: Service Date/Time: Monday, April 03, 2017 03:04 - CONCLUSION: 1. Cardiomegaly. Minimal basilar atelectasis. Wilder Burr MD Carotid Artery Ultrasound 04/03/17 0000 Signed Impressions: Service Date/Time: Monday, April 03, 2017 12:30 - CONCLUSION: Negative examination for a hemodynamically significant carotid stenosis. Constantino Dial MD Brain MRI 04/03/17 0000 Signed Impressions: Service Date/Time: Monday, April 03, 2017 11:53 - CONCLUSION: 1. Cavum septum pellucidum, an anatomic variant. 2. Ventricular prominence out of proportion to degree of cortical atrophy. In the appropriate clinical setting, findings could be indicative of normal pressure hydrocephalus. Osvaldo Ruby MD Objective Remarks GENERAL: Well-developed well-nourished. In no acute distress. SKIN: Warm and dry. No lesions noted. HEENT: Normocephalic. Pupils equal and round. Mucous membranes pink and moist. CARDIOVASCULAR: Regular rate and rhythm. No murmur appreciated. RESPIRATORY: No accessory muscle use. Clear to auscultation. Breath sounds equal bilaterally. GASTROINTESTINAL: Abdomen soft, non-tender, nondistended. Bowel sounds x4. MUSCULOSKELETAL: No obvious deformities. No clubbing or cyanosis. No edema. NEUROLOGICAL: Awake and alert. No focal neurological deficits. Moves upper and lower extremities spontaneously. Normal speech. No myoclonic jerking noted. No outbursts noted. PSYCHIATRIC: Appropriate mood and affect; insight and judgment fair to normal. 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 Acute Encephalopathy: Head CT images reviewed, no acute findings. Brain MRI shows cavum septum pellucidum, anatomic variant; ventricular prominence out of proportion to degree of cortical atrophy; findings could be indicative of NPH. Neurology consulted. Continue neuro checks. Orthostatics negative. Fall precautions. Resolved, patient back to baseline. Myoclonic Jerking, suspected: with hx of TBI 20years ago. Brain MRI as above. EEG unremarkable. Neurology consulted. PT/OT/ST consult. Started on IV Depakote per neurology, patient much improved. Depakote level 80. Discussed with Dr. Lara , changed to po Depakote 750mg q8h. Stable for discharge per neurology. Jerking/ verbal outbursts improved. Syncope: patient describes as passing out however patient's family reports he feel asleep on the toilet. Suspect related to medications vs vasovagal with vomiting, patient was placed on Baclofen the day prior by PCP for back pain. Head imaging as above. Monitor on tele. EEG negative. Given IVF, now discontinued. Held patient's Baclofen. Orthostatics negative. No further episodes. Atrial Fibrillation, on Coumadin: Rherapeutic INR 2.1. EKG shows atrial fibrillation. Continue Coumadin, monitor INR, with pharmacy consult, currently on 2.5 mg of Coumadin. CHF/HTN: chronic, stable, continue patient's lisinopril 2.5mg qd, coreg 3.125mg bid, aspirin. Initially held patient's bumex and spironolactone with GEMINI, however now renal function back to baseline, discontinued fluids as patient is tolerating po intake, restarted patient's bumex/spironolactone. GEMINI on CKD stage III: Cr 2.04, with baseline 1.5 per EMR. Given IVF. Renal function improving, Cr 1.4. Avoid nephrotoxins. D/C'd IVF, patient tolerating po intake. Hypothyroidism: chronic, continue patient's levothyroxine. TSH wnl. Nausea/loose stools: No vomiting, abdominal pain, or multiple loose bowel movements. Zofran as needed. Lactinex. DVT Prophylaxis: on coumadin with therapeutic INR Discharge Planning Discharge patient to SNF Condition on discharge: Improved Heart Healthy Diet as tolerated Regular activity Rx written: depakote 750mg po q8h, Coumadin, Zofran, Lactinex Follow-up with primary care physician and neurology Dr. Lara Problem Qualifiers (1) CHF (congestive heart failure): Qualified Code: I50.22 - Chronic systolic congestive heart failure Mauro Quiroga April 07, 2017 13:46
--- NOTE | 2017-04-07 15:57 | HHI.NSPN ---
(Vance Lauren) Note Status Status: Progress Note (Vance Lauren) Interval History Interval History 04/04: 81-year-old male brought to the emergency room due to recent progressive episodes of shaking and spasm in the left lower extremity accompanied by intermittent abnormal vocalizations. The patient himself states that he has had some progressive gait difficulty for at least a few months. He states that approximately 20 years ago he fell and hit his head and believes that he may have had some chronic gait impairment since then. However in the past few months, his gait has become progressively worse. He has no significant pain with ambulation. He states that it feels as if his right upper extremity coordination is impaired. In the past 4 days he has noted that his left upper extremity is weak, and he cannot lift it above his shoulder level. He has some numbness in the left hand. He has a history of chronic problems with bladder dysfunction. 04/07: Patient states he is doing all right. He did have some nausea earlier and he reports that the coordination with the left hand is still a problem. He also states that he is suppose to be going to rehab. (Vance Lauren) Labs, Micro, & Vital Signs Constitutional Vital Signs Date Time Temp Pulse Resp B/P Pulse Ox O2 Delivery O2 Flow Rate FiO2 04/07/17 15:15 98.0 85 20 107/59 97 04/07/17 11:01 97.8 82 18 107/70 96 04/07/17 08:47 98.5 86 21 124/61 98 04/07/17 08:45 98.4 77 18 117/67 97 04/07/17 08:00 76 04/07/17 06:17 95 04/07/17 04:16 97.8 74 18 113/60 91 04/07/17 00:42 97.8 81 18 101/61 97 04/06/17 20:37 98.1 84 18 107/59 97 04/06/17 20:15 77 04/06/17 18:29 72 (Vance Lauren) Review of Systems/Exam ROS Constitutional: Patient states that he tires easily. He denies any fever or chills. HEENT: Patient complains of post-nasal drip. Respiratory: Patient denies any shortness of breath or productive cough although he does have a cough secondary to post-nasal drip: Cardiovascular: Patient denies any chest pain, palpitations or irregular heart beat. Gastrointestinal: Patient complains urgency when he needs to have a bowel movement. He did state he had nausea last week but none since being in the hospital. He denies any abdominal pain or vomiting. Genitourinary: Patient complains of urinary urgency and some bladder incontinence. Musculoskeletal: Patient complains of some pain to the neck and back. He denies any arm or leg pain. Neurologic: Patient complains of gait difficulty, localised weakness and difficulty with fine movements of the left hand. He states that the toes feel "asleep" but not numb when sitting or in bed but they are okay when he is up and walking. He denies any headache or dizziness. Exam GENERAL: This is a well-nourished, well-developed patient, in no apparent distress. SKIN: Scattered areas of ecchymosis and mild edema throughout the distal greater than proximal upper and lower extremities HEAD: Normocephalic, atraumatic. PERRRLA, EOMI. MMM & pink. NECK: No midline pain to palpation, no nuchal rigidity, no JVD, trachea midline. CARDIOVASCULAR: S1S2 w/RRR w/grade II-III/ murmur, radial & pedal pulses 2+ bilaterally, cap refill < 2 sec, 1-2+ edema bilaterally, vascular skin changes to lower legs R>L. RESPIRATORY: CTAB w/o W/R/R, equal excursion, non-laboured, on RA. GASTROINTESTINAL: Abdomen soft, nontender, positive bowel sounds. MUSCULOSKELETAL: Vascular skin changes to lower legs R>L, left calf TTP. NEUROLOGICAL: Awake, alert & oriented to person, place & month Speech clear & appropriate although mildly slow Follow simple commands well CN II-XI appear grossly intact Sensation is intact to light touch in all extremities Strength 5/5 RUE & RLE and 4 to 5/5 LUE and 3+ to 4/5 LLE Fine motor movements intact RUE but some difficulty still with left. Positive left pronator drift No evident jerking movements noted or involuntary vocalisations heard (Vance Lauren) Medications Current Medications Current Medications Medications (Trade) Dose Ordered Sig/Shagufta Route Start Time Stop Time Status Last Admin (NS Flush) 2 ml UNSCH PRN IV FLUSH 04/03/17 04:45 (NS Flush) 2 ml BID IV FLUSH 04/03/17 09:00 04/07/17 09:18 (Narcan Inj) 0.4 mg UNSCH PRN IV 04/03/17 04:45 (Ecotrin Ec) 81 mg DAILY PO 04/04/17 09:00 04/07/17 09:18 (Coreg) 3.125 mg BID PO 04/03/17 21:00 04/07/17 09:19 (Synthroid) 125 mcg DAILY@06 PO 04/04/17 06:00 04/07/17 06:12 (Cytomel) 25 mcg DAILY PO 04/04/17 09:00 04/07/17 09:18 Fenofibrate 145 mg 145 mg DAILY PO 04/04/17 09:00 04/07/17 09:18 (Coumadin Consult Pharmacy) 0 ml @ 0 mls/hr UNSCH OTHER 04/04/17 09:00 (Bumetanide) 2 mg DAILY PO 04/06/17 09:00 04/07/17 09:18 (Aldactone) 25 mg DAILY PO 04/06/17 09:00 04/07/17 09:19 (Depakene) 750 mg Q8H PO 04/05/17 18:00 04/07/17 09:18 (Flonase Chacho Spr) 2 spray DAILY EACH NARE 04/05/17 20:45 04/07/17 09:19 (Coumadin) 2.5 mg DAILY@1600 PO 04/06/17 16:00 04/06/17 16:48 (Zofran Inj) 4 mg Q6HR PRN IV PUSH 04/06/17 12:45 04/06/17 12:52 (Lactinex) 1 tab Q12HR PO 04/07/17 21:00 (Vance Lauren) Medical Decision Making MDM Remarks Impression: 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 History of atrial fibrillation. On Coumadin He does seem to have findings suggestive of NPH. Per patient jerking movements in the left leg are significantly improved with his recent medication changes per Neurology. Gait unable to be evaluated due to myoclonus. (Vance Lauren) Plan Plan Remarks PT for therapy Concur with patient going to rehab Okay for discharge from NSGY's perspective, follow up as an outpatient in 3-4 weeks (Vance Lauren) Attending Statement The exam, history, and the medical decision-making described in the above note were completed with the assistance of the mid-level provider. I reviewed and agree with the findings presented. I attest that I had a [id number] encounter with the patient on the same day, and personally performed and documented my assessment and findings in the medical record. Findings D/W patient.Stable Neuro exam. OK for rehab. F/U in office in 3-4 weeks to discuss possible shunt. (Earle Harvey MD) Vance Lauren April 07, 2017 15:57 Earle Harvey MD May 19, 2017 16:30
[2017-04-07] MEDS: WARFARIN SOD 2.5 MG TAB PO SCH (16:43)
[2017-04-07] MEDS: LACTOBACILLUS ACIDOPHILUS TAB PO SCH (20:20)
[2017-04-08] MEDS: VALPROIC ACID 250 MG CAP PO SCH ×2 (02:19→09:31)
[2017-04-08 04:50] VITALS: BP 104/56; PULSE 71; RESP 18; TEMP 97.8; O2SAT 98
[2017-04-08 05:27] LABS: INTERNATIONAL NORMALIZED RATIO 2.3 RATIO; PROTHROMBIN TIME - PATIENT 26.3 SEC (9.8-11.6)
[2017-04-08] MEDS: LEVOTHYROXINE SODIUM 125 MCG TAB PO SCH (06:22)
[2017-04-08 08:00] VITALS: BP 129/59; PULSE 88; RESP 18; TEMP 96.5; O2SAT 95
[2017-04-08] MEDS: FLUTICASONE PROPIONATE 50 MCG/ACT 16 GM NASAL SPRAY EACH NARE SCH (09:30)
[2017-04-08] MEDS: LACTOBACILLUS ACIDOPHILUS TAB PO SCH (09:31)
[2017-04-08] MEDS: LIOTHYRONINE SODIUM 25 MCG TAB PO SCH (09:31)
[2017-04-08] MEDS: FENOFIBRATE 145 MG TAB PO SCH (09:31)
[2017-04-08] MEDS: SPIRONOLACTONE 25 MG TAB PO SCH (09:32)
[2017-04-08] MEDS: ASPIRIN EC 81 MG TABEC PO SCH (09:32)
[2017-04-08] MEDS: CARVEDILOL 3.125 MG TAB PO SCH (09:32)
[2017-04-08] MEDS: SODIUM CHLORIDE 0.9% FLUSH 10 ML FLUSH IV FLUSH SCH (09:32)
[2017-04-08] MEDS: BUMETANIDE 1 MG TAB PO SCH (09:37)
--- NOTE | 2017-04-08 10:30 | HHI.DS ---
Discharge Summary Admission Date April 03, 2017 at 04:47 Discharge Date: April 08, 2017 Admitting Diagnosis AMS, Agitation (1) Encephalopathy acute ICD Code: G93.40 Diagnosis: Principal (2) CHF (congestive heart failure) ICD Code: I50.9 Diagnosis: Secondary (3) HTN (hypertension) ICD Code: I10 Diagnosis: Secondary (4) Hypothyroid ICD Code: E03.9 Diagnosis: Secondary (5) Myoclonic jerking ICD Code: G25.3 Diagnosis: Principal Procedures None Brief History - From Admission 81 y/o male with a history of HTN,CHF,afib, brain injury, and Hypothyroid presented to the ED confused, increase jerky movements and verbal outbreaks. Patient was given Ativan prior to assessment. Discussed issues with daughter who is at the bedside. 20 years ago he suffered a brain injury from a fall and over the last year he has worsening jerky movements and verbal outbreaks. For the last month he has has had increase balance problems, and yesterday he was having constant jerky movements, he then took a nap, got up to go to the bathroom, and fell asleep on toilet and fell off the toilet. Recent medication change on Thursday, he was given baclofen by his PCP. CBC/BMP: 04/04/17 0510 04/04/17 0510 Significant Findings Laboratory Tests Test 04/06/17 04/07/17 04/08/17 05:21 06:30 04:20 Prothrombin Time 24.8 SEC 24.5 SEC 26.3 SEC (9.8-11.6) (9.8-11.6) (9.8-11.6) Imaging Last Impressions Head CT 04/03/17251 Signed Impressions: Service Date/Time: Monday, April 03, 2017 03:48 - CONCLUSION: 1. No acute intracranial abnormalities. Cavum septum pellucidum. Wilder Burr MD Chest X-Ray 04/03/17251 Signed Impressions: Service Date/Time: Monday, April 03, 2017 03:04 - CONCLUSION: 1. Cardiomegaly. Minimal basilar atelectasis. Wilder Burr MD Carotid Artery Ultrasound 04/03/17 0000 Signed Impressions: Service Date/Time: Monday, April 03, 2017 12:30 - CONCLUSION: Negative examination for a hemodynamically significant carotid stenosis. Constantino Dial MD Brain MRI 04/03/17 0000 Signed Impressions: Service Date/Time: Monday, April 03, 2017 11:53 - CONCLUSION: 1. Cavum septum pellucidum, an anatomic variant. 2. Ventricular prominence out of proportion to degree of cortical atrophy. In the appropriate clinical setting, findings could be indicative of normal pressure hydrocephalus. Osvaldo Ruby MD PE at Discharge GENERAL: Well-developed well-nourished. In no acute distress. SKIN: Warm and dry. No lesions noted. HEENT: Normocephalic. Pupils equal and round. Mucous membranes pink and moist. CARDIOVASCULAR: Regular rate and rhythm. No murmur appreciated. RESPIRATORY: No accessory muscle use. Clear to auscultation. Breath sounds equal bilaterally. GASTROINTESTINAL: Abdomen soft, non-tender, nondistended. Bowel sounds x4. MUSCULOSKELETAL: No obvious deformities. No clubbing or cyanosis. No edema. NEUROLOGICAL: Awake and alert. No focal neurological deficits. Moves upper and lower extremities spontaneously. Normal speech. No myoclonic jerking noted. No outbursts noted. PSYCHIATRIC: Appropriate mood and affect; insight and judgment fair to normal. Pt update on day of discharge The patient has no acute complaints today. He is going to rehabilitation today. He is happy that the jerking has improved. 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 Acute Encephalopathy: Head CT images reviewed, no acute findings. Brain MRI shows cavum septum pellucidum, anatomic variant; ventricular prominence out of proportion to degree of cortical atrophy; findings could be indicative of NPH. Neurology consulted. Continue neuro checks. Orthostatics negative. Fall precautions. Resolved, patient back to baseline. Myoclonic Jerking, suspected: with hx of TBI 20years ago. Brain MRI as above. EEG unremarkable. Neurology consulted. PT/OT/ST consult. Started on IV Depakote per neurology, patient much improved. Depakote level 80. Changed to po Depakote 750mg q8h per neurology. Stable for discharge per neurology. Jerking/verbal outbursts improved. Syncope: patient describes as passing out however patient's family reports he feel asleep on the toilet. Suspect related to medications vs vasovagal with vomiting, patient was placed on Baclofen the day prior by PCP for back pain. Head imaging as above. Monitor on tele. EEG negative. Given IVF, now discontinued. Held patient's Baclofen. Orthostatics negative. No further episodes. Atrial Fibrillation, on Coumadin: Therapeutic INR 2.3 with Coumadin pharmacy dose adjustment, continue Coumadin 2.5 mg daily. CHF/HTN: chronic, stable, continue patient's lisinopril 2.5mg qd, coreg 3.125mg bid, aspirin. Initially held patient's bumex and spironolactone with GEMINI, however now renal function back to baseline, discontinued fluids as patient is tolerating po intake, restarted patient's bumex/spironolactone. GEMINI on CKD stage III: Cr 2.04, with baseline 1.5 per EMR. Given IVF. Renal function improved, Cr 1.4. Nausea/loose stools: No vomiting, abdominal pain, or multiple loose bowel movements. Stool studies negative. Zofran as needed. Lactinex. Pt Condition on Discharge: Stable Discharge Disposition: Discharge to SNF Discharge Time: > 30 minutes Discharge Instructions DIET: Follow Instructions for: Heart Healthy Diet Activities you can perform: Regular-No Restrictions Follow up Referrals: Neurology - 1 Week with Nando Lara MD PCP Follow-up - 2-3 Days SNF/RETIREMENT/HH with kenisha/christine New Orders: PT/INR - 2-3 Days New Medications: Lactobacillus Acidophilus (Lactinex) 1 Chew 1 TAB CHEW BID Nutritional Supplement #15 Ref 0 TAB Ondansetron (Ondansetron) 4 Mg Tab 4 MG PO Q6HR PRN NAUSEA OR VOMITING #10 TAB Valproic Acid (Valproic Acid) 250 Mg Cap 750 MG PO Q8HR myoclonic jerking Days 30 Ref 0 CAP Warfarin (Coumadin) 2.5 Mg Tab 2.5 MG PO DAILY@1600 Blood Clot Prevention #30 TAB Continued Medications: Aspirin (Aspirin) 81 Mg Tabdr 81 MG PO DAILY TAB Bumetanide (Bumetanide) 2 Mg Tab 2 MG PO DAILY Ref 0 TAB Carvedilol (Carvedilol) 3.125 Mg Tab 3.125 MG PO BID #60 Ref 0 TAB Fenofibrate (Fenofibrate) 160 Mg Tab 160 MG PO DAILY #30 Ref 0 TAB Levothyroxine (Levothyroxine) 125 Mcg Tab 125 MCG PO DAILY Thyroid #30 Ref 0 TAB Liothyronine (Liothyronine) 25 Mcg Tab 25 MCG PO DAILY Thyroid Supplement #30 Ref 0 TAB Lisinopril (Lisinopril) 2.5 Mg Tab 2.5 MG PO DAILY #30 Ref 0 TAB Spironolactone (Spironolactone) 25 Mg Tab 25 MG PO DAILY #30 Ref 0 TAB Discontinued Medications: Baclofen (Baclofen) 20 Mg Tab 20 MG PO TID Muscle Spasm Ref 0 TAB Warfarin (Warfarin) 3 Mg Tab 3 MG PO DAILY Blood Clot Prevention #30 Ref 0 TAB Mauro Quiroga April 08, 2017 10:30 Mauro Quiroga April 08, 2017 10:30
[2017-04-08 12:00] VITALS: BP 121/64; PULSE 76; RESP 18; TEMP 97.2; O2SAT 97
== END 2017-04-08 13:20 ==
LOC: NEPC 02:32 → INTOOBSV 04:47 → NEDA 04:47 → NEPHCDU 06:20
PROVIDERS: ADMIT Internal Medicine; ATTEND Internal Medicine
DX: G93.40 Encephalopathy, unspecified (principal); I13.0 Hypertensive heart and chronic kidney disease with heart failure and stage 1 through stage 4 chronic kidney disease, or unspecified chronic kidney disease; N18.3 Chronic kidney disease, stage 3 (moderate); I50.9 Heart failure, unspecified; R55 Syncope and collapse; E03.9 Hypothyroidism, unspecified; G25.3 Myoclonus; I48.2 Chronic atrial fibrillation; M54.9 Dorsalgia, unspecified; N17.9 Acute kidney failure, unspecified; R11.0 Nausea; R19.7 Diarrhea, unspecified; I25.10 Atherosclerotic heart disease of native coronary artery without angina pectoris; E07.9 Disorder of thyroid, unspecified; F03.90 Unspecified dementia, unspecified severity, without behavioral disturbance, psychotic disturbance, mood disturbance, and anxiety; R53.1 Weakness; R56.9 Unspecified convulsions; Z79.82 Long term (current) use of aspirin; Z66 Do not resuscitate; Z79.01 Long term (current) use of anticoagulants; W18.12XA Fall from or off toilet with subsequent striking against object, initial encounter; Z91.81 History of falling; Z79.899 Other long term (current) drug therapy
CPT/HCPCS: 70450; 70551; 71010; 80048; 80053; 80164; 80307; 82140; 82550; 84443; 84484; 85025; 85610; 85730; 87493; 87506; 92526; 92610; 93005; 93880; 95819; 97110; 97116; 97163; 97167; 97530; 99285; G0378; G8987; G8988; G8996; G8997; G8998; J2060; J2405; J7030